=== PATIENT | male | born 1945 | race Caucasian/White ===

== ENCOUNTER 2019-05-16 13:08 | Emergency (ER) | payer SELFPAY ==
[2019-05-16 13:16] VITALS: BP 191/106; PULSE 114; RESP 20; TEMP 36.6; O2SAT 95
--- NOTE | 2019-05-16 13:24 | ED.GENADUL_ITS ---
Discharge Plan Disposition Patient Disposition: HOME Condition: Stable Discharge Details Chief Complaint: Nausea/Vomit/Diar Clinical Impression: Diarrhea Primary Care Provider: None,None ED Provider: Lety Boyle Home Meds and New Rx's Prescriptions: New ondansetron HCl [Zofran] 4 mg tablet 4 mg PO Q8H PRNQty: 7 RF: 0 Continued omeprazole 40 MG capsule,delayed release(DR/EC) 40 mg DAILY RF: 0 aspirin [Aspir-81] 81 MG tablet,delayed release (DR/EC) 81 mg DAILY RF: 0 metformin [Glucophage] 1,000 MG tablet 1,000 mg BID RF: 0 oxycodone 5 MG tablet 5 mg BID PRNRF: 0 cyclobenzaprine 10 mg Tablet 10 mg PO TID RF: 0 atorvastatin 40 mg Tablet 40 mg PO DAILY RF: 0 lisinopril-hydrochlorothiazide 20-25 mg Tablet 2 tab PO DAILY RF: 0 capsaicin 0.025 % Cream 1 applic TOPICAL BID RF: 0 levothyroxine 200 mcg Tablet 200 mcg PO DAILY RF: 0 glipizide 5 mg Tablet 5 mg PO BID RF: 0 metoprolol tartrate 25 mg Tablet 75 mg PO DAILY RF: 0 Discharge Instructions Instructions: Acute Diarrhea (ED) Additional Instructions: Follow up with primary care provider in 3-5 days. Return to ED sooner if any worsening or concerns. Increase oral fluids. Discharge Data Discharge Date/Time-TO BE ENTERED AT DEPARTURE: 05/16/19 18:16 Medical Decision Making 73-year-old male with a history of hypertension and type 2 diabetes presents with nausea and diarrhea which began this morning. He denies fever or chills, is associated with abdominal burning denies vomiting. 1521: Patient reevaluation, he states that his abdominal burning is better after medications, no further diarrhea episodes while in department. He is having urine output in the urinal. His initial labs show sodium of 129, magnesium low at 1.2 which I will replace with 2 g magnesium IV piggyback, he also has a 14,000 white count which could suggest infectious diarrhea. He has received a liter of normal saline, Zofran, 20 mg of famotidine IV, and 2 g of magnesium. I have ordered stool culture. This time plan is to discharge home with prescription for Zofran. With in structions to follow-up with PCP. HPI General Mode of arrival: wheelchair . Date/Time Provider Initiated Documentation: 05/16/19 13:13 . Limitations to Documentation: physical limitation . Information obtained by: patient . HPI Narrative: 73-year-old male with a history of hypertension and type 2 diabetes presents with nausea and diarrhea which began this morning. He denies fever or chills, is associated with abdominal burning denies vomiting. Related Data Home Medications Medication Instructions Recorded Confirmed aspirin [Aspir-81] 81 mg DAILY 09/01/13 05/16/19 metformin [Glucophage] 1,000 mg BID 09/01/13 05/16/19 omeprazole 40 mg DAILY 09/01/13 05/16/19 oxycodone 5 mg BID PRN 09/01/13 05/16/19 atorvastatin 40 mg PO DAILY 05/16/19 05/16/19 capsaicin 1 applic TOPICAL BID 05/16/19 05/16/19 cyclobenzaprine 10 mg PO TID 05/16/19 05/16/19 glipizide 5 mg PO BID 05/16/19 05/16/19 levothyroxine 200 mcg PO DAILY 05/16/19 05/16/19 lisinopril-hydrochlorothiazide 2 tab PO DAILY 05/16/19 05/16/19 metoprolol tartrate 75 mg PO DAILY 05/16/19 05/16/19 ondansetron HCl [Zofran] 4 mg PO Q8H PRN #7 tab 05/16/19 Previous Rx's Medication Instructions Recorded ondansetron HCl [Zofran] 4 mg PO Q8H PRN #7 tab 05/16/19 Allergies Allergy/AdvReac Type Severity Reaction Status Date / Time No Known Allergies Allergy Unverified 05/16/19 13:24 General Stated Complaint: Nausea/Vomit/Diar SKYLAR: 3 Review of Systems Narrative: Constitutional: Negative for weight loss, alert and oriented, appears comfortable. HEENT: Denies trauma, headaches, blurry vision, nasal discharge, sore throat, trouble swallowing. Chest: Denies chest pain, palpitations, irregular rhythm, hypertension. Respiratory: Denies Shortness of breath, cough, hemoptysis. GI: Denies vomiting, constipation. Positive diarrhea, and abdominal pain. : Denies dysuria, hematuria, flank pain, rectal bleeding. Neuro: Denies dizziness, blurry vision, weakness, syncope, headache or facial numbness. Hematologic: Denies easy bruising, intolerance to heat or cold, hair loss. [facility] Social History Smoking/Tobacco Use Status: Former Tobacco Use Alcohol Intake: former Drug use: Never Do you feel safe at home: Yes Do you feel safe in your relationship?: Yes Exam Narrative Exam Narrative: Constitutional: Alert and oriented x3. Obese Head: Normocephalic, no trauma. Eyes: Pupils PERRLA, Red reflex noted, EOM's intact. Eyelids symmetrical withour lesions, discharge, or swelling. ENT: Bilateral TM's WNL, External ear normal to inspection, no mastoid TTP, swelling, or erythema, Nasal turbinates WNL, no nasal discharge. Normal dentition, Posterior pharynx WNL, no exudate. Chest: Tachycardic, normal S1, S2, distal pulses intact. Resp: Lungs clear to auscultation bilaterally, no wheezes, rales, or rhonchi. Abdomen: Soft nontender to palpation. Hyperactive bowel sounds noted all 4 quadrants. Musculoskeletal: Patient has leg braces to bilateral lower extremities. Skin: No suspicious rashes or lesions. Capillary refill less than 2 sec. Neurologic: Cranial nerves II-XII intact. Alert and oriented x 3. DTR's intact. Hematologic/Lymphatic: No ecchymosis, no lymphadenopathy. Course Vital Signs Vital signs: Vital Signs Temperature 36.6 C 05/16/19 13:16 Pulse 114 H 05/16/19 13:16 Respiratory Rate 05/16/19 13:16 Blood Pressure 191/106 H 05/16/19 13:16 Pulse Oximetry 95 05/16/19 13:16 Temperature 36.6 C 05/16/19 13:16 Temperature Source Oral 05/16/19 13:16 Pulse 114 H 05/16/19 13:16 Respiratory Rate 05/16/19 13:16 Respiratory Effort Non-Labored 05/16/19 13:23 Blood Pressure 191/106 H 05/16/19 13:16 Blood Pressure Position Supine 05/16/19 13:16 Pulse Oximetry 95 05/16/19 13:16 Oxygen Delivery Method Room Air 05/16/19 13:16 Oxygen Flow Rate 0 05/16/19 13:16 Pain Level 8 05/16/19 13:16
[2019-05-16] MEDS: Normal Saline 1,000 ML 1000 ML IV (14:28)
[2019-05-16] MEDS: Ondansetron 4 MG/2 ML VIAL IVP (14:29)
[2019-05-16] MEDS: Normal Saline Flush 10 ML SYR IVP (14:30)
[2019-05-16] MEDS: FAMOTIDINE 20 MG/50 ML BAG 200 MG IVPB (14:36)
[2019-05-16 14:37] LABS: Abs Immature Grans 0.08 k/cumm (0.0-0.09); Absolute Lymphocyte Count 1.79 k/cumm (1.2-3.4); Absolute Monocyte Count 1.51 k/cumm (0.11-0.7); Basophils % 0.1; HCT 32.6 % (40.0-50.0); HGB 11.4 g/dL (13.5-17.5); Immature Grans % 0.5 %; Lymphocytes % 12.1; Mean Corpuscular Hemoglobin 31.2 pg (27.0-33.0); Mean Corpuscular Volume 89.3 fL (80-95); Mean Platelet Volume 9.6 fL (8.0-11.0); Monocytes % 10.2; Neutrophils % 77.1; Platelet Count 325 x1000/uL (130-400); RBC 3.65 m/cumm (4.50-6.00); RBC Distribution Width 12.7 % (11.8-14.1); White Blood Cell Count 14.77 k/cumm (4.4-10.8)
[2019-05-16 14:38] LABS: Absolute Basophil Count 0.01 k/cumm (0.0-0.2); Absolute Neutrophil Count 11.39 k/cumm (1.2-6.7)
[2019-05-16 14:56] LABS: ALT 38 U/L (16-63); AST 28 U/L (15-37); Alkaline Phosphatase 30 U/L (46-116); Anion Gap 11.1 mmol/L (3-11); BUN 17 mg/dL (7-18); Bilirubin, Total 0.5 mg/dL (0.2-1.0); CO2 25.9 mmol/L (21.0-32.0); Calcium 9.1 mg/dL (8.5-10.1); Chloride 92 mmol/L (98-107); Estimated GFR 59.68 (mL/min/1.73m2); Glucose 146 mg/dL (74-106); Magnesium 1.2 mg/dL (1.8-2.4); Potassium 3.6 mmol/L (3.5-5.1); Sodium 129 mmol/L (136-145); Total Protein 7.6 g/dL (6.4-8.2)
[2019-05-16 15:05] LABS: Diff Comment Agrees w/ Instrument
[2019-05-16] MEDS: MAGNESIUM SULFATE 2 GM/50 ML BAG IVPB (15:40)
[2019-05-16 15:57] LABS: Bilirubin Negative (Negative); Blood Negative (Negative); Clarity Clear (Clear); Glucose Negative (Negative); Ketones Negative (Negative); Leukocyte Esterase Negative (Negative); Nitrite Negative (Negative); Specific Gravity 1.015 (1.005-1.025); Urobilinogen 0.2 EU/dL (Up TO 0.2); pH 6.5 (5-8)
[2019-05-16 17:00] VITALS: BP 154/85; PULSE 104; O2SAT 96
== END 2019-05-16 18:16 | disposition home or self-care (01) ==
PROVIDERS: Emergency Provider Registered Nurse Emergency
DX: R19.7 Diarrhea, unspecified (principal); E83.42 Hypomagnesemia; I10 Essential (primary) hypertension; E11.9 Type 2 diabetes mellitus without complications
CPT/HCPCS: 36415; 80053; 96361; 96365; 96366; 96367; 96375; 99284; 81003; 83735; 85025; J2405

== ENCOUNTER 2019-06-10 10:27 | Emergency (ER) | payer OTHER, SELFPAY ==
[2019-06-10 10:45] VITALS: BP 182/74; PULSE 90; TEMP 36.8; O2SAT 94
--- NOTE | 2019-06-10 11:15 | DI.CT_ITS ---
EXAM: CT ABDOMEN PELVIS W CLINICAL HISTORY: abdominal pain, bloating, unable to eat x 3 days. TECHNIQUE: Imaging Protocol: Axial computed tomography images with coronal and sagittal reformatted images were created and reviewed CONTRAST MATERIAL: Intravenous: Omnipaque 350 Contrast volume:125 mL Oral: No COMPARISON: No exams were available for comparison FINDINGS: ABDOMEN: Lung Bases: Normal where visualized. Liver: Normal density. No measurable mass. Portal, Superior Mesenteric, and Splenic Veins: Unremarkable. Gallbladder and Biliary Tract: No radiodense calculus or dilation. Pancreas: Normal density, no abnormal calcifications or inflammatory process. Spleen: Normal. Adrenals: No masses seen. Kidneys: Normal size, contour and axis. No radiodense stones or obstructive uropathy. No masses seen. Abdominal Aorta: Abdominal portion non-dilated. Atherosclerosis. Bowel: No obstruction or bowel wall thickening. Appendix is unremarkable. Colonic diverticulosis but no evidence of acute diverticulitis. Peritoneal Cavity: No ascites, collection or mesenteric inflammatory response. Lymph Nodes: Within normal limits. Bones: Degenerative changes. Soft Tissues: Portions of the anterior abdominal wall were not visualized due to patient body habitus and positioning. PELVIS: Bladder: Symmetric distention, no gross wall thickening. Reproductive Organs: Unremarkable as visualized. Lymph Nodes: Within normal limits. Bones: Degenerative changes. IMPRESSION: No acute abdominal or pelvic process. RADIATION DOSE DELIVERED: Total DLP DATA REPOSITORY: All CT scans at this facility are submitted to the National Radiology Data Registry (NRDR) Dose Index Registry (DIR) with the [employer] ([employer]). RADIATION OPTIMIZATION: All CT scans at this facility use at least one of these dose optimization te chniques: automated exposure control; mA and/or kV adjustment per patient size (includes targeted exa ms where dose is matched to clinical indication); or iterative reconstruction.
--- NOTE | 2019-06-10 11:17 | ED.GENADUL_ITS ---
Discharge Plan Disposition Patient Disposition: HOME Condition: Stable Discharge Details Chief Complaint: Abd Prob Clinical Impression: Abdominal pain, Chronic hyponatremia Primary Care Provider: Brianne Montano ED Provider: Loraine Hare Home Meds and New Rx's Prescriptions: New dicyclomine 20 mg tablet 20 mg PO QID Qty: 10 RF: 0 Continued omeprazole 40 MG capsule,delayed release(DR/EC) 40 mg DAILY RF: 0 aspirin [Aspir-81] 81 MG tablet,delayed release (DR/EC) 81 mg DAILY RF: 0 metformin [Glucophage] 1,000 MG tablet 1,000 mg BID RF: 0 oxycodone 5 MG tablet 5 mg BID PRNRF: 0 cyclobenzaprine 10 mg Tablet 10 mg PO TID RF: 0 atorvastatin 40 mg Tablet 40 mg PO DAILY RF: 0 lisinopril-hydrochlorothiazide 20-25 mg Tablet 2 tab PO DAILY RF: 0 capsaicin 0.025 % Cream 1 applic TOPICAL BID RF: 0 levothyroxine 200 mcg Tablet 200 mcg PO DAILY RF: 0 glipizide 5 mg Tablet 5 mg PO BID RF: 0 metoprolol tartrate 25 mg Tablet 75 mg PO DAILY RF: 0 ondansetron HCl [Zofran] 4 mg tablet 4 mg PO Q8H PRNQty: 7 RF: 0 Discharge Instructions Instructions: Hyponatremia (ED), Abdominal Pain (ED) Additional Instructions: Drink plenty of fluids. Use medication as prescribed. Follow-up with your lab abnormalities with [facility] specifically in your low sodiums and elevated WBC's Your CT scan today did reveal incidental findings of hiatal hernia as well as diverticulosis without signs of infection. Nothing to indicate emergency at this time. Continue daily omeprazole Rest activities as tolerated. Call [place] for recheck. Return for any worsening, concerns or alarming symptoms sooner if needed Discharge Data Discharge Date/Time-TO BE ENTERED AT DEPARTURE: 06/10/19 13:45 Medical Decision Making Is a 73-year-old patient presenting with complaints of 3 days of abdominal discomfort described diffusely. Patient reports he has had no appetite for the last 3 days and has been unable to eat due to abdominal discomfort. Patient reports he was seen approximately 3 weeks ago for similar burning type sensation in his abdomen. Patient reports he was prescribed medication which he lost. Patient is seeking this medication at this time which he thinks to be eating in his discomfort. Patient denies nausea or vomiting. Denies changes in his bowels. He does report abdominal bloating and a sensation of feeling gassy. Patient reports occasional itching normal flatus. Patient denies any diarrhea, constipation. Patient does report he moved his bowels x2 today which were normal bowel movements. Denies dark or blood in his bowel movements. Patient reports his inability to eat is quite atypical. Patient denies fever or chills. Patient appears nontoxic at this time in no apparent distress. On exam patient has clear breath sounds with no increase in respiratory effort. Patient does have notable abdominal tenderness with palpation he describes 9 out of 10 pain with palpation specifically of his lower abdomen on the right. Patient is also complaining of left-sided abdominal pain. No obvious peritoneal signs, rebound or guarding. Patient reports feeling distended at this time. Bowel sounds are present in all 4 quadrants. After discussion with the patient will plan to obtain imaging of his abdomen at this time in addition to repeating labs. Patient's previous visit he was somewhat hypo-natremia. Patient declines medication use at this time. Patient's labs reveal a persistent leukocytosis which is been previously noted on his labs. Patient does have some decrease in his leukocytosis compared to previous visit. Patient does have a sodium of 125 noted today mild elevation of his glucose. Patient is notable diabetic. Lipase is normal patient did receive 1 L of IV fluid which will be completed and labs will be repeated. Of note patient's previous labs have noted hyponatremia which is attributed to his daily medications on previous medical charts. Patient denies any gait instability, confusion nausea or headache. I feel his hyponatremia is likely chronic. Patient's urinalysis unremarkable for identified infection today. Patient CT scan reveals a small hiatal hernia and diverticulosis without evidence of diverticulitis. No acute identifiable cause of patient's symptoms. Repeat of patient's BMP reveals improvement in his sodium to 128. We will plan to discharge this patient home. We did discuss his lab results. Recommended follow-up with his [facility] doctor. Patient feels comfortable with discharge home at this time. Will provide prescription for Bentyl for symptomatic relief of patient's abdominal cramping. Patient agrees this plan of care. Recommended follow-up with PCP if not improving in the next 2 to 3 days. Improved blood pressure during visit however notable discharge blood pressure 177/90. This was discussed with the patient. He has no concern of hypertensive emergency at this time. Recommended compliance with his daily medications. Patient reports his understanding. Will recheck with PCP at the [place]. The patient was stable and requested discharge. Prior to discharge, my usual and customary return precautions were reviewed with the patient - this included follow-up instructions and reasons to return to the Emergency Department if conditions worsens, does not improve as expected, or other new concerns arise. HPI General Date/Time Provider Initiated Documentation: 06/10/19 10:49 . HPI Narrative: Is a 73-year-old patient presenting for complaints of abdominal pain. Patient reports onset of abdominal pain and discomfort for the last 3 days. Patient reports unable to eat for the last 3 days, decreased appetite. Patient does report mild abdominal bloating. Patient reports gas type feeling and burning sensation in his abdomen. Patient denies any esophageal or chest symptoms. Patient denies epigastric discomfort. Patient does report moving his bowels normally. Denies associated diarrhea. Patient reports he was seen a few weeks ago for similar complaints however at that time he was able to eat and drink without difficulty. Patient reports he never filled the prescribed prescription and was returning for concern of having prescription re written. Patient denies fever. Patient is urinating without difficulty, urgency frequency dysuria or hematuria. Patient reports abdominal discomfort is diffuse. Denies any back complaints. Denies chest pain but if it difficulty breathing or shortness of breath or wheezing. No new cough. No headache or dizziness. No other concerns or complaints at this time. Related Data Home Medications Medication Instructions Recorded Confirmed aspirin [Aspir-81] 81 mg DAILY 09/01/13 06/10/19 metformin [Glucophage] 1,000 mg BID 09/01/13 06/10/19 omeprazole 40 mg DAILY 09/01/13 06/10/19 oxycodone 5 mg BID PRN 09/01/13 06/10/19 atorvastatin 40 mg PO DAILY 05/16/19 06/10/19 capsaicin 1 applic TOPICAL BID 05/16/19 06/10/19 cyclobenzaprine 10 mg PO TID 05/16/19 06/10/19 glipizide 5 mg PO BID 05/16/19 06/10/19 levothyroxine 200 mcg PO DAILY 05/16/19 06/10/19 lisinopril-hydrochlorothiazide 2 tab PO DAILY 05/16/19 06/10/19 metoprolol tartrate 75 mg PO DAILY 05/16/19 06/10/19 ondansetron HCl [Zofran] 4 mg PO Q8H PRN #7 tab 05/16/19 06/10/19 dicyclomine 20 mg PO QID #10 tab 06/10/19 Previous Rx's Medication Instructions Recorded ondansetron HCl [Zofran] 4 mg PO Q8H PRN #7 tab 05/16/19 dicyclomine 20 mg PO QID #10 tab 06/10/19 Allergies Allergy/AdvReac Type Severity Reaction Status Date / Time No Known Allergies Allergy Unverified 06/10/19 11:06 General Stated Complaint: Abd Prob SKYLAR: 4 Review of Systems All systems reviewed & are unremarkable except as noted in HPI and below Constitutional Constitutional: Denies chills, Denies fever(s), Denies headache(s) and Denies malaise ENT Ears, Nose, Mouth, and Throat: Denies headache(s) Cardiovascular Cardiovascular: Denies chest pain, Denies rapid heart rate and Denies dyspnea Respiratory Respiratory: Denies cough and Denies dyspnea Gastrointestinal Gastrointestinal: Reports abdominal pain, Denies melena, Reports bloating, Denies hematochezia, Denies change in bowel habits, Denies heartburn, Denies diarrhea, Denies nausea and Denies vomiting Genitourinary Genitourinary: Denies difficulty urinating, Denies urinary frequency and Denies urinary urgency Neurologic Neurologic: Denies headache(s) [facility] Social History Smoking/Tobacco Use Status: Former Tobacco Use Alcohol Intake: former Drug use: Never Substance use type: does not use Do you feel safe at home: Yes Do you feel safe in your relationship?: Yes Exam Narrative Exam Narrative: CONST: Patient in no acute distress. Well hydrated. Alert and oriented. HENMT: Head nomocephalic, normal to inspection. Atraumatic. Hearing grossly normal. EYES: General normal appearance. Alignment normal. Eyelids normal. Conjunctiva normal. NECK: Normal visual inspection. FROM. Trachea midline. No Midline tenderness. Mild dry mucous membranes CHEST: Normal insepection of the chest. RESP: Normal respiratory effort. Speaking full sentences. No cough. No audible wheezing. No retractions. Breath sounds clear, full and equal bilaterally. No wheezing, rhonchi or rales CARDIO: No JVD. No murmur. Regular rate and rhythm Abdomen: Bowel sounds present all 4 quadrants. Abdomen is soft. Moderate tenderness in the right lower quadrant, left upper and left lower quadrants. Patient reports 9 out of 10 pain with palpation of the lower abdomen. No obvious peritoneal signs, rebound or guarding. MUSCULOSKELETAL: Normal Gait. FROM of all extremities. Back: No CVA tenderness noted bilaterally. Lower leg braces noted bilaterally SKIN: Normal. Dry. No rashes. NEURO: Alert and awake. Speech clear. PSYCH: Normal affect. Cooperative. Course Vital Signs Vital signs: Vital Signs Temperature 36.8 C 06/10/19 10:45 Pulse 90 06/10/19 10:45 Blood Pressure 182/74 H 06/10/19 10:45 Pulse Oximetry 94 L 06/10/19 10:45 Temperature 36.8 C 06/10/19 10:45 Temperature Source Temporal Artery Scan 06/10/19 10:45 Pulse 90 06/10/19 10:45 Blood Pressure 182/74 H 06/10/19 10:45 Blood Pressure Position Sitting 06/10/19 10:45 Pulse Oximetry 94 L 06/10/19 10:45 Oxygen Delivery Method Room Air 06/10/19 10:45 Oxygen Flow Rate 0 06/10/19 10:45
[2019-06-10 11:33] LABS: Bilirubin Negative (Negative); Blood Negative (Negative); Clarity Clear (Clear); Glucose Negative (Negative); Ketones Negative (Negative); Leukocyte Esterase Negative (Negative); Nitrite Negative (Negative); Specific Gravity >= 1.030 (1.005-1.025); Urobilinogen 0.2 EU/dL (Up TO 0.2)
[2019-06-10 11:47] LABS: Epithelial Cells Rare HPF (Negative); WBC 0-2 HPF (0-5)
[2019-06-10 11:48] LABS: Bacteria Few HPF (Negative); C & S Indicated? No; Casts 10-20 Hyaline LPF (Negative); Crystals Negative HPF (Negative); Mucus Heavy (Negative); Other Cells Few Renal (Negative)
[2019-06-10] MEDS: Omnipaque 350 MG/ML 100 ML BTL IJ (11:52)
[2019-06-10 11:54] LABS: Abs Immature Grans 0.08 k/cumm (0.0-0.09); Absolute Basophil Count 0.01 k/cumm (0.0-0.2); Absolute Lymphocyte Count 1.82 k/cumm (1.2-3.4); Absolute Monocyte Count 1.53 k/cumm (0.11-0.7); Basophils % 0.1; HCT 33.6 % (40.0-50.0); Immature Grans % 0.6 %; Lymphocytes % 13.9; Mean Corp. HGB Concentration 35.7 g/dL (32.0-36.0); Mean Corpuscular Hemoglobin 31.7 pg (27.0-33.0); Mean Corpuscular Volume 88.7 fL (80-95); Mean Platelet Volume 9.2 fL (8.0-11.0); Monocytes % 11.7; Neutrophils % 73.7; Platelet Count 370 x1000/uL (130-400); RBC 3.79 m/cumm (4.50-6.00); RBC Distribution Width 12.9 % (11.8-14.1)
[2019-06-10 11:55] LABS: Absolute Neutrophil Count 9.65 k/cumm (1.2-6.7)
[2019-06-10 12:05] LABS: Diff Comment Agrees w/ Instrument
[2019-06-10 12:06] LABS: RBC Morphology Normal
--- NOTE | 2019-06-10 12:09 | DI.VRAD_ITS ---
PROCEDURE INFORMATION: Exam: CT Abdomen And Pelvis With Contrast Exam date and time: 06/10/2019 11:20 AM Age: 73 years old Clinical indication: Abdominal pain; Patient HX: Abd pain, bloating, unable to eat 3x days TECHNIQUE: Imaging protocol: Computed tomography of the abdomen and pelvis with intravenous contrast. COMPARISON: No relevant prior studies available. FINDINGS: Small hiatal hernia. Diverticulosis without evidence of diverticulitis. Normal appearing solid organs. No intestinal obstruction. No obstructive uropathy. No free fluid. No free air. No inflammatory changes. IMPRESSION: No specific etiology identified for the patient's symptoms. Dictated and Authenticated by: Danny Griffin MD. Ordering:ASHLEY Baron MD
[2019-06-10 12:12] LABS: ALT 39 U/L (16-63); AST 24 U/L (15-37); Albumin 4.2 g/dL (3.4-5.0); Alkaline Phosphatase 26 U/L (46-116); Anion Gap 6.5 mmol/L (3-11); BUN 18 mg/dL (7-18); Bilirubin, Total 0.5 mg/dL (0.2-1.0); CO2 28.5 mmol/L (21.0-32.0); CREATININE 1.27 mg/dL (0.70-1.30); Calcium 10.4 mg/dL (8.5-10.1); Chloride 90 mmol/L (98-107); Estimated GFR 55.91 (mL/min/1.73m2); Glucose 175 mg/dL (74-106); Lipase 53 U/L (73-393); Potassium 3.6 mmol/L (3.5-5.1); Sodium 125 mmol/L (136-145)
[2019-06-10] MEDS: Normal Saline 1,000 ML 1000 ML IV (12:14)
[2019-06-10] MEDS: Normal Saline Flush 10 ML SYR IVP (12:14)
[2019-06-10 13:25] LABS: Anion Gap 7.7 mmol/L (3-11); BUN 17 mg/dL (7-18); CO2 28.3 mmol/L (21.0-32.0); CREATININE 1.21 mg/dL (0.70-1.30); Calcium 9.8 mg/dL (8.5-10.1); Chloride 92 mmol/L (98-107); Estimated GFR 59.12 (mL/min/1.73m2); Glucose 139 mg/dL (74-106); Potassium 3.8 mmol/L (3.5-5.1); Sodium 128 mmol/L (136-145)
[2019-06-10 13:43] VITALS: BP 177/90; PULSE 94; RESP 18; TEMP 36.9; O2SAT 96
== END 2019-06-10 13:45 | disposition home or self-care (01) ==
PROVIDERS: Emergency Provider Physician Assistant; PCP Nurse Practitioner Adult Health
DX: R10.84 Generalized abdominal pain (principal); E87.1 Hypo-osmolality and hyponatremia; K57.30 Diverticulosis of large intestine without perforation or abscess without bleeding; K44.9 Diaphragmatic hernia without obstruction or gangrene; E11.9 Type 2 diabetes mellitus without complications; Z79.84 Long term (current) use of oral hypoglycemic drugs
CPT/HCPCS: 80048; 80053; 83690; 96360; 99285; 74177; 81003; 81015; 85025; 99284; J3490

== ENCOUNTER 2019-06-12 11:37 | Inpatient (IN) | payer MEDICARE, OTHER, SELFPAY ==
[2019-06-12] VITALS (21 sets, daily range): BP systolic 132–157; BP diastolic 56–75; PULSE 66–110; RESP 14–26; TEMP 36.6–36.9; O2SAT 95–98
--- NOTE | 2019-06-12 12:02 | W.ED.GENAD ---
Discharge Plan Discharge Details Chief Complaint: Abd Prob Admit Date/Time: 06/12/19 13:14 Admit Provider: Joi Parson Attending Provider: Joi Parson Primary Care Provider: Brianne Montano ED Provider: Naye Sin Medical Decision Making Naveed Arguelles is a 73 y/o man with h/o diabetes, hypothyroidism, HTN who presented to the emergency department with abdominal pain after meals that began one week ago after running out of omeprazole, unchanged since onset, in setting of being seen here for same 2 days ago with neg CT a/p. No current pain. Exam shows no abd TTP. Neurologic exam grossly non-focal. Exam/hx not c/w acute life threatening intra-abdominal pathology. Concern for likely gastritis/PUD, possible metabolic/lyte derangement given prior hyponatremia 06/09. Plan for omeprazole, screening labs. Labs show critical hyponatremia at 120. Hypercalcemia, leukocytosis at 15. Unclear etiology of hyponatremia, Pt does appear mildly dehydrated. Plan for 500cc NS. Discussed Pt presentation and results with Dr. Parson hospitalist for admission. Will send urine lytes for hospitalist. Clinical Impression: hyponatremia Disposition: [facility] in Medical Records Medical records reviewed: Yes I reviewed the patient's medical records. Lab Data Lab results reviewed: Yes I reviewed the patient's lab results. Labs: Laboratory Tests Range/Units 06/12/19 06/12/19 06/12/19 12:25 12:25 12:25 WBC (4.4-10.8) k/cumm 15.92 H RBC (4.50-6.00) m/cumm 3.72 L Hgb (13.5-17.5) g/dL 11.8 L Hct (40.0-50.0) % 32.3 L MCV (80-95) fL 86.8 MCH (27.0-33.0) pg 31.7 MCHC (32.0-36.0) g/dL 36.5 H RDW (11.8-14.1) % 12.5 Plt Count (130-400) x1000/uL 379 MPV (8.0-11.0) fL 9.2 Immature Gran % % 0.5 Neutrophils % 78.8 Lymphocytes % 11.7 Monocytes % 8.9 Eosinophils % 0.0 Basophils % 0.1 Absolute Neutrophils (1.2-6.7) k/cumm 12.54 H Absolute Lymphocytes (1.2-3.4) k/cumm 1.86 Absolute Monocytes (0.11-0.7) k/cumm 1.42 H Absolute Eosinophils (0.0-0.7) k/cumm 0.00 Absolute Basophils (0.0-0.2) k/cumm 0.02 Sodium (136-145) mmol/L 120 L* Potassium (3.5-5.1) mmol/L 3.4 L Chloride (98-107) mmol/L 84 L Carbon Dioxide (21.0-32.0) mmol/L 25.5 Anion Gap (3-11) mmol/L 10.5 BUN (7-18) mg/dL 12 Creatinine (0.70-1.30) mg/dL 1.12 Estimated GFR/1.73 m2 (mL/min/1.73m2) >= 60.00 Glucose (74-106) mg/dL 116 H Calcium (8.5-10.1) mg/dL 10.5 H Total Bilirubin (0.2-1.0) mg/dL 0.6 AST (15-37) U/L 35 ALT (16-63) U/L 39 Alkaline Phosphatase (46-116) U/L 25 L Total Protein (6.4-8.2) g/dL 7.6 Albumin (3.4-5.0) g/dL 4.0 Lipase (73-393) U/L 43 TSH (0.36-3.74) uIU/mL 2.10 Urine Color (Yellow) Urine Clarity (Clear) Urine pH (5-8) Ur Specific [place] (1.005-1.025) Urine Protein (Negative) mg/dL Urine Ketones (Negative) mg/dL Urine Blood (Negative) Urine Nitrite (Negative) Urine Bilirubin (Negative) Urine Urobilinogen (Up TO 0.2) EU/dL Ur Leukocyte Esterase (Negative) Urine Glucose (Negative) mg/dL Range/Units 06/12/19 13:15 WBC (4.4-10.8) k/cumm RBC (4.50-6.00) m/cumm Hgb (13.5-17.5) g/dL Hct (40.0-50.0) % MCV (80-95) fL MCH (27.0-33.0) pg MCHC (32.0-36.0) g/dL RDW (11.8-14.1) % Plt Count (130-400) x1000/uL MPV (8.0-11.0) fL Immature Gran % % Neutrophils % Lymphocytes % Monocytes % Eosinophils % Basophils % Absolute Neutrophils (1.2-6.7) k/cumm Absolute Lymphocytes (1.2-3.4) k/cumm Absolute Monocytes (0.11-0.7) k/cumm Absolute Eosinophils (0.0-0.7) k/cumm Absolute Basophils (0.0-0.2) k/cumm Sodium (136-145) mmol/L Potassium (3.5-5.1) mmol/L Chloride (98-107) mmol/L Carbon Dioxide (21.0-32.0) mmol/L Anion Gap (3-11) mmol/L BUN (7-18) mg/dL Creatinine (0.70-1.30) mg/dL Estimated GFR/1.73 m2 (mL/min/1.73m2) Glucose (74-106) mg/dL Calcium (8.5-10.1) mg/dL Total Bilirubin (0.2-1.0) mg/dL AST (15-37) U/L ALT (16-63) U/L Alkaline Phosphatase (46-116) U/L Total Protein (6.4-8.2) g/dL Albumin (3.4-5.0) g/dL Lipase (73-393) U/L TSH (0.36-3.74) uIU/mL Urine Color (Yellow) Yellow Urine Clarity (Clear) Clear Urine pH (5-8) 7.0 Ur Specific [place] (1.005-1.025) 1.020 Urine Protein (Negative) mg/dL Negative Urine Ketones (Negative) mg/dL Negative Urine Blood (Negative) Negative Urine Nitrite (Negative) Negative Urine Bilirubin (Negative) Negative Urine Urobilinogen (Up TO 0.2) EU/dL 0.2 Ur Leukocyte Esterase (Negative) Negative Urine Glucose (Negative) mg/dL Negative HPI General Mode of arrival: ambulatory. Date/Time Provider Initiated Documentation: 06/12/19 11:39. Limitations to Documentation: no limitations. Information obtained by: patient, RN notes reviewed and old records reviewed. HPI Narrative: Naveed Arguelles is a 73 y/o man with history of hypothyroidism, hypertension, diabetes presenting to the emergency department with abdominal pain. Patient reports that he ran out of his omeprazole 1 week ago. Patient reports that since running out of his omeprazole, he has had pain across the middle of his abdomen that occurs after eating. Patient reports that pain resolves within an hour or 2 of eating. Patient reports that he is currently pain-free. Per patient and record review, patient was seen here for this abdominal pain 06/09. Patient underwent CT at that time showing no acute process. Patient has chronic hyponatremia, and was found to have sodium 125, sodium was repeated after fluids and patient was discharged home with sodium 128. Patient reports that his abdominal pain that he is presenting to the emergency with today is the same pain that he presented with 06/09. Patient reports that his pain has been unchanged since onset approximately 1 week ago after running out of omeprazole. No worsening, no change in location over the past week. Patient denies any other pain, fevers, shortness of breath, cough, dysuria, numbness, weakness, rash, vomiting, diarrhea, constipation. Related Data Home Medications Medication Instructions Recorded Confirmed aspirin [Aspir-81] 81 mg DAILY 09/01/13 06/12/19 metformin [Glucophage] 1,000 mg BID 09/01/13 06/12/19 omeprazole 40 mg DAILY 09/01/13 06/12/19 oxycodone 5 mg BID PRN 09/01/13 06/12/19 atorvastatin 40 mg PO DAILY 05/16/19 06/12/19 capsaicin 1 applic TOPICAL BID 05/16/19 06/12/19 cyclobenzaprine 10 mg PO TID 05/16/19 06/12/19 glipizide 5 mg PO BID 05/16/19 06/12/19 levothyroxine 200 mcg PO DAILY 05/16/19 06/12/19 lisinopril-hydrochlorothiazide 2 tab PO DAILY 05/16/19 06/12/19 metoprolol tartrate 75 mg PO DAILY 05/16/19 06/12/19 ondansetron HCl [Zofran] 4 mg PO Q8H PRN #7 tab 05/16/19 06/12/19 dicyclomine 20 mg PO QID #10 tab 06/10/19 06/12/19 Previous Rx's Medication Instructions Recorded ondansetron HCl [Zofran] 4 mg PO Q8H PRN #7 tab 05/16/19 dicyclomine 20 mg PO QID #10 tab 06/10/19 Allergies Allergy/AdvReac Type Severity Reaction Status Date / Time No Known Allergies Allergy Unverified 06/10/19 11:06 General Stated Complaint: Abd Prob SKYLAR: 3 Review of Systems Narrative: Constitutional: denies fevers Eyes: denies eye pain ENT: denies ear pain, dental pain, sore throat Cardiovascular: denies chest pain, edema Respiratory: denies SOB, cough GI: denies vomiting, diarrhea, reports abdominal pain : denies flank pain MSK: denies back pain, neck pain, acute arthralgias, myalgias, reports chronic b/l knee pain unchanged Skin: denies rash Neuro: denies headaches, numbness, weakness PFSH Social History Smoking/Tobacco Use Status: Former Tobacco Use Alcohol Intake: former Drug use: Never Substance use type: does not use Do you feel safe at home: Yes Do you feel safe in your relationship?: Yes Exam Narrative Exam Narrative: Constitutional: well and [id number], pleasant, conversing normally HENT: head atraumatic/normocephalic/normal inspection, mucous membranes somewhat dry Eyes: conjunctiva normal, sclera normal, pupils 3mm b/l Neck: no stridor, normal ROM, trachea midline Resp: normal work of breathing, no respiratory distress Cardio: normal rate, normal rhythm GI: abdomen soft, non-tender, non-distended Skin: warm, dry, normal color, no rash Neuro: alert, not altered, grossly non-focal, normal tone Ext: moving all extremities, leg braces in place Psych: normal mood, normal affect, normal behavior Course Vital Signs Vital signs: Vital Signs Temperature 36.9 C 06/12/19 11:46 Pulse 77 06/12/19 11:46 Respiratory Rate 18 06/12/19 11:46 Blood Pressure 147/56 H 06/12/19 11:46 Pulse Oximetry 95 06/12/19 11:46 Temperature 36.9 C 06/12/19 11:46 Temperature Source Temporal Artery Scan 06/12/19 11:46 Pulse 77 06/12/19 11:46 Respiratory Rate 18 06/12/19 11:46 Blood Pressure 147/56 H 06/12/19 11:46 Blood Pressure Position Sitting 06/12/19 11:46 Pulse Oximetry 95 06/12/19 11:46 Oxygen Delivery Method Room Air 06/12/19 11:46 Oxygen Flow Rate 0 06/12/19 11:46 Pain Level 8 06/12/19 11:46
[2019-06-12 12:32] LABS: Abs Immature Grans 0.08 k/cumm (0.0-0.09); Absolute Monocyte Count 1.42 k/cumm (0.11-0.7); Absolute Neutrophil Count 12.54 k/cumm (1.2-6.7); Basophils % 0.1; HCT 32.3 % (40.0-50.0); HGB 11.8 g/dL (13.5-17.5); Immature Grans % 0.5 %; Lymphocytes % 11.7; Mean Corp. HGB Concentration 36.5 g/dL (32.0-36.0); Mean Corpuscular Hemoglobin 31.7 pg (27.0-33.0); Mean Corpuscular Volume 86.8 fL (80-95); Mean Platelet Volume 9.2 fL (8.0-11.0); Monocytes % 8.9; Neutrophils % 78.8; Platelet Count 379 x1000/uL (130-400); RBC 3.72 m/cumm (4.50-6.00); RBC Distribution Width 12.5 % (11.8-14.1); White Blood Cell Count 15.92 k/cumm (4.4-10.8)
[2019-06-12 12:35] LABS: Absolute Basophil Count 0.02 k/cumm (0.0-0.2); Absolute Lymphocyte Count 1.86 k/cumm (1.2-3.4)
[2019-06-12] MEDS: Omeprazole 20 MG CAPCR 40 MG PO (12:47)
[2019-06-12 12:48] LABS: ALT 39 U/L (16-63); AST 35 U/L (15-37); Alkaline Phosphatase 25 U/L (46-116); Anion Gap 10.5 mmol/L (3-11); BUN 12 mg/dL (7-18); Bilirubin, Total 0.6 mg/dL (0.2-1.0); CO2 25.5 mmol/L (21.0-32.0); CREATININE 1.12 mg/dL (0.70-1.30); Calcium 10.5 mg/dL (8.5-10.1); Chloride 84 mmol/L (98-107); Glucose 116 mg/dL (74-106); Lipase 43 U/L (73-393); Potassium 3.4 mmol/L (3.5-5.1); Total Protein 7.6 g/dL (6.4-8.2)
[2019-06-12 12:51] LABS: Sodium 120 mmol/L (136-145)
[2019-06-12] MEDS: Normal Saline 250 ML 500 ML IV (13:21)
[2019-06-12 13:25] LABS: Bilirubin Negative (Negative); Blood Negative (Negative); Clarity Clear (Clear); Glucose Negative (Negative); Ketones Negative (Negative); Leukocyte Esterase Negative (Negative); Nitrite Negative (Negative); Urobilinogen 0.2 EU/dL (Up TO 0.2)
[2019-06-12 13:32] LABS: Creatinine,Urine 33.37 mg/dL; POTASSIUM,URINE RANDOM 32 mmol/L
[2019-06-12 13:39] LABS: Lactate 1.1 mmol/L (0.6-1.4)
[2019-06-12 13:52] LABS: Sodium, Urine 45 mmol/L
[2019-06-12] MEDS: Lidocaine 2% Jelly 6 ML SYR (16:15)
--- NOTE | 2019-06-12 16:19 | W.PM.HP.N ---
Date of service: 06/12/19 Time of Service: 16:19 Assessment and Plan Assessment and plan (1) Acute hyponatremia: Status: Acute Assessment and plan: on chronic. I suspect this could be due to his use of HCTZ/lisinopril, not eating. SIADH less likely as he had no nausea, but not impossible - would benefit from chest imaging on transfer to [place], if accepted. Does have a h/o smoking. For now, treat with gentle IVF, check BMP Q4-6 hrs. Await transfer to the [place]. (2) Abdominal pain: Status: Acute Assessment and plan: suspicious for gastric ulcer, gastritis, gastroparesis. Would benefit from an EGD and/or gastric emptying study. (3) Leucocytosis: Status: Acute Assessment and plan: Appears to be chronic. I am not sure what workup of this was already done at the [place] - therefore, will not aggressively pursue if transferred. If stays here, at a minimum would benefit from CXR and a UA. (4) Hypokalemia: Status: Acute Assessment and plan: Replete (5) DVT prophylaxis: Status: Acute Assessment and plan: TEDs/SCDs. (6) Discharge planning issues: Status: Acute Assessment and plan: Full code. Patient requests transfer to the [place], which we are attempting to arrange. Patient is stable for transfer there today. Total Critical Care Time 60 minutes. History of Present Illness History of Present Illness Chief Complaint: abdominal pain Narrative: Mr Arguelles is a 73 year old male with PMHx of NIDDM2, HTN, hyperlipidemia, chronic hyponatremia, hypothyroidism, GERD, who was seen at [facility] ED on 06/10/2019 with epigastric-midabdominal pain and discharged home after having negative imaging, who returned today with recurrent abdominal pain, worse after he eats, requesting omeprazole. The patient was found to have a sodium of 120. He states he has not eaten in 2 days, but continued to drink water and take his medications. He states that he had not had any diarrhea/constipation, nausea/vomiting, blood in stool. He last had a BM 2 days ago - it was brown. There is no abdominal pain at the time of the interview. The patient is a poor history provider, but states he has never had any surgeries, which includes EGD/Colonoscopy. He denies having history of peptic ulcers and does not know what gastroparesis is. He denies using NSAIDs for his arthritis, stating he only takes oxycodone. Denies fevers, dizziness, chest pain, shortness of breath, cough, contact with any known COVID + patients. In the ED, he was initiated on gentle IVF. His next sodium level is pending. [facility] and [facility] now [facility]. Review of Systems Narrative: 12 systems reviewed. Pertinent positives and negatives are as per HPI. [facility] Medical History (Updated 06/12/19 @ 16:39 by Joi Parson MD) Chronic hyponatremia (Acute) Depression (Chronic) GERD (gastroesophageal reflux disease) (Chronic) Hearing loss (Acute) Hyperlipidemia (Inactive) Hypertension (Inactive) Hypothyroidism (Chronic) Non-insulin dependent diabetes mellitus (Acute) Obesity (Chronic) Osteoarthritis (Chronic) Surgical History (Updated 06/12/19 @ 16:32 by Joi Parson MD) No pertinent past surgical history (Acute) Family History (Updated 06/12/19 @ 16:32 by Joi Parson MD) Mother Diabetes Cancer breast cancer Social History (Updated 06/12/19 @ 16:33 by Joi Parson MD) Smoking/Tobacco Use Status: Former Tobacco Use Quit Date: 02/15/14 Pack-years: 60 Tobacco: How many years used: 30 Alcohol Intake: former Drug use: Never Substance use type: does not use Do you feel safe at home: Yes Do you feel safe in your relationship?: Yes Meds Home Medications and Allergies Home Medications Medication Instructions Recorded Confirmed Type aspirin [Aspir-81] 81 mg DAILY 09/01/13 06/12/19 History metformin [Glucophage] 1,000 mg BID 09/01/13 06/12/19 History omeprazole 40 mg DAILY 09/01/13 06/12/19 History oxycodone 5 mg BID PRN 09/01/13 06/12/19 History atorvastatin 40 mg PO DAILY 05/16/19 06/12/19 History capsaicin 1 applic TOPICAL BID 05/16/19 06/12/19 History cyclobenzaprine 10 mg PO TID 05/16/19 06/12/19 History glipizide 5 mg PO BID 05/16/19 06/12/19 History levothyroxine 200 mcg PO DAILY 05/16/19 06/12/19 History lisinopril-hydrochlorothiazide 2 tab PO DAILY 05/16/19 06/12/19 History metoprolol tartrate 75 mg PO DAILY 05/16/19 06/12/19 History ondansetron HCl [Zofran] 4 mg PO Q8H PRN #7 tab 05/16/19 06/12/19 Rx dicyclomine 20 mg PO QID #10 tab 06/10/19 06/12/19 Rx Allergies Allergy/AdvReac Type Severity Reaction Status Date / Time No Known Allergies Allergy Unverified 06/10/19 11:06 Exam Narrative Exam Narrative: General: Pleasant obese male, A&OX3, but forgetful (has difficulty deciding whether his abdominal pain started 2 days ago or 3 weeks ago), laying comfortably flat in bed, cooperative, hard of hearing Neurological: A&Ox3, forgetful, no obvious focal deficits Psychiatric: appropriate speech pattern/content Skin: evidence of healed scars on BUE's from cutting HEENT: Atraumatic, normocephalic, EOMI, MMM, no JVD, mild goiter, no lymphadenopathy Cardiovascular: RRR, no m/r/g Lungs: CTAB Gastrointestinal: soft, nontender, nondistended Genitourinary: deferred Extremities: Has BLE braces on - refuses to have them taken off Results Imaging Additional studies: EKG: HR 78, NSR, no acute ischemia CT abdomen/pelvis 06/10/2019: No acute abdominal or pelvic process. Labs Result diagrams: 06/12/19 12:25 06/12/19 12:25 Labs: Laboratory Results - last 24 hr 06/12/19 06/12/19 06/12/19 12:25 12:25 12:25 WBC 15.92 H RBC 3.72 L Hgb 11.8 L Hct 32.3 L MCV 86.8 MCH 31.7 MCHC 36.5 H RDW 12.5 Plt Count 379 MPV 9.2 Immature Gran % 0.5 Neutrophils % 78.8 Lymphocytes % 11.7 Monocytes % 8.9 Eosinophils % 0.0 Basophils % 0.1 Absolute Neutrophils 12.54 H Absolute Lymphocytes 1.86 Absolute Monocytes 1.42 H Absolute Eosinophils 0.00 Absolute Basophils 0.02 Sodium 120 L* Potassium 3.4 L Chloride 84 L Carbon Dioxide 25.5 Anion Gap 10.5 BUN 12 Creatinine 1.12 Estimated GFR/1.73 m2 >= 60.00 Glucose 116 H Lactate Calcium 10.5 H Total Bilirubin 0.6 AST 35 ALT 39 Alkaline Phosphatase 25 L Total Protein 7.6 Albumin 4.0 Lipase 43 TSH 2.10 Urine Color Urine Clarity Urine pH Ur Specific [place] Urine Protein Urine Ketones Urine Blood Urine Nitrite Urine Bilirubin Urine Urobilinogen Ur Leukocyte Esterase Ur Random Creatinine Ur Random Sodium Ur Random Potassium Urine Glucose 06/12/19 06/12/19 06/12/19 13:15 13:15 13:15 WBC RBC Hgb Hct MCV MCH MCHC RDW Plt Count MPV Immature Gran % Neutrophils % Lymphocytes % Monocytes % Eosinophils % Basophils % Absolute Neutrophils Absolute Lymphocytes Absolute Monocytes Absolute Eosinophils Absolute Basophils Sodium Potassium Chloride Carbon Dioxide Anion Gap BUN Creatinine Estimated GFR/1.73 m2 Glucose Lactate Calcium Total Bilirubin AST ALT Alkaline Phosphatase Total Protein Albumin Lipase TSH Urine Color Yellow Urine Clarity Clear Urine pH 7.0 Ur Specific [place] 1.020 Urine Protein Negative Urine Ketones Negative Urine Blood Negative Urine Nitrite Negative Urine Bilirubin Negative Urine Urobilinogen 0.2 Ur Leukocyte Esterase Negative Ur Random Creatinine 33.37 Ur Random Sodium 45 Ur Random Potassium 32 Urine Glucose Negative 06/12/19 13:30 WBC RBC Hgb Hct MCV MCH MCHC RDW Plt Count MPV Immature Gran % Neutrophils % Lymphocytes % Monocytes % Eosinophils % Basophils % Absolute Neutrophils Absolute Lymphocytes Absolute Monocytes Absolute Eosinophils Absolute Basophils Sodium Potassium Chloride Carbon Dioxide Anion Gap BUN Creatinine Estimated GFR/1.73 m2 Glucose Lactate 1.1 Calcium Total Bilirubin AST ALT Alkaline Phosphatase Total Protein Albumin Lipase TSH Urine Color Urine Clarity Urine pH Ur Specific [place] Urine Protein Urine Ketones Urine Blood Urine Nitrite Urine Bilirubin Urine Urobilinogen Ur Leukocyte Esterase Ur Random Creatinine Ur Random Sodium Ur Random Potassium Urine Glucose Last Vital Signs Temp 36.8 C 06/12/19 13:35 Pulse 76 06/12/19 13:35 Resp 18 06/12/19 13:35 BP 136/67 06/12/19 13:35 Pulse Ox 96 06/12/19 13:35 COVID-19 Screening Traveled to [place] from one of the affected countries or regions?: NO Recent travel in the [place] within the last 14 days?: No Recent out of the country travel within the last 14 days?: No Exposure or possible exposure to illness during travel?: No Had IN PERSON contact w/suspected or confirmed C-19 person: No Have you had the following symptoms in the past few days?: No
--- NOTE | 2019-06-12 17:12 | DI.RAD_ITS ---
EXAM: XR PORTABLE CHEST AP CLINICAL HISTORY: leucocytosis. TECHNIQUE: 2D digital imaging was performed. COMPARISON: ABD FLAT UPRIGHT PA CHEST from 09/01/2013 FINDINGS: LUNGS: Clear. No pleural abnormality seen. HEART: Normal. MEDIASTINUM: Normal. OTHER FINDINGS: None. IMPRESSION: No acute pulmonary findings. DATA REPOSITORY: RADIATION DOSE DELIVERED:
[2019-06-12 17:33] LABS: Bilirubin Negative (Negative); Blood Trace-intact (Negative); Clarity Clear (Clear); Glucose Negative (Negative); Ketones Negative (Negative); Leukocyte Esterase Negative (Negative); Nitrite Negative (Negative); Specific Gravity 1.015 (1.005-1.025); Urobilinogen 0.2 EU/dL (Up TO 0.2)
[2019-06-12 17:37] LABS: Anion Gap 9.7 mmol/L (3-11); BUN 13 mg/dL (7-18); CO2 26.3 mmol/L (21.0-32.0); CREATININE 1.03 mg/dL (0.70-1.30); Calcium 9.8 mg/dL (8.5-10.1); Chloride 86 mmol/L (98-107); Glucose 76 mg/dL (74-106); Potassium 3.2 mmol/L (3.5-5.1)
--- NOTE | 2019-06-12 17:38 | DI.VRAD_ITS ---
PROCEDURE INFORMATION: Exam: XR Chest, 1 View Exam date and time: 06/12/2019 5:26 PM Age: 73 years old Clinical indication: Other: Leucocytosis TECHNIQUE: Imaging protocol: XR of the chest Views: 1 view. COMPARISON: CR ABD FLAT UPRIGHT PA CHEST 09/01/2013 7:24 PM FINDINGS: Lungs: Unremarkable. No consolidation. Pleural space: Unremarkable. No pleural effusion. No pneumothorax. Heart/Mediastinum: Unremarkable. No cardiomegaly. Bones/joints: Unremarkable. IMPRESSION: No acute findings. Dictated and Authenticated by: Beti Donald MD. Ordering:JOSÉ MIGUEL Tamez MD
[2019-06-12 17:40] LABS: Sodium 122 mmol/L (136-145)
[2019-06-12 17:43] LABS: Bacteria Negative HPF (Negative); C & S Indicated? C&S Done As Ordered; Crystals Negative HPF (Negative); Epithelial Cells Negative HPF (Negative); Mucus Negative (Negative); WBC 0-2 HPF (0-5)
[2019-06-12] MEDS: POTASSIUM CHLORIDE 20 MEQ/100 ML BAG 50 MEQ IVPB ×2 (18:15→20:03)
[2019-06-12] MEDS: Normal Saline 1,000 ML 75 ML IV ×2 (18:21→22:20)
[2019-06-12] MEDS: Cyclobenzaprine 10 MG TAB PO (19:41)
[2019-06-12] MEDS: oxyCODONE 5 MG TAB PO (19:41)
[2019-06-12] MEDS: Pantoprazole 40 MG VIAL IVP (19:41)
[2019-06-12] MEDS: Dicyclomine 20 MG TAB PO (19:41)
[2019-06-12] MEDS: Normal Saline Flush 10 ML SYR (19:42)
[2019-06-12 20:46] LABS: Anion Gap 8.8 mmol/L (3-11); BUN 12 mg/dL (7-18); CO2 26.2 mmol/L (21.0-32.0); CREATININE 1.07 mg/dL (0.70-1.30); Calcium 9.3 mg/dL (8.5-10.1); Chloride 86 mmol/L (98-107); Glucose 86 mg/dL (74-106); Potassium 3.3 mmol/L (3.5-5.1)
[2019-06-12 20:51] LABS: Sodium 121 mmol/L (136-145)
[2019-06-13] VITALS (38 sets, daily range): BP systolic 105–159; BP diastolic 55–106; PULSE 61–85; RESP 11–33; TEMP 36.6–36.7; O2SAT 94–99
[2019-06-13 00:55] LABS: Anion Gap 7.5 mmol/L (3-11); BUN 11 mg/dL (7-18); CO2 28.5 mmol/L (21.0-32.0); CREATININE 1.06 mg/dL (0.70-1.30); Calcium 9.3 mg/dL (8.5-10.1); Chloride 88 mmol/L (98-107); Glucose 82 mg/dL (74-106); Potassium 3.4 mmol/L (3.5-5.1)
[2019-06-13 00:57] LABS: Sodium 124 mmol/L (136-145)
[2019-06-13] MEDS: Levothyroxine 200 MCG TAB PO (05:12)
[2019-06-13 06:47] LABS: Abs Immature Grans 0.07 k/cumm (0.0-0.09); Absolute Basophil Count 0.01 k/cumm (0.0-0.2); Absolute Lymphocyte Count 1.67 k/cumm (1.2-3.4); Basophils % 0.1; Eosinophils % 0.1; HCT 34.2 % (40.0-50.0); HGB 12.4 g/dL (13.5-17.5); Immature Grans % 0.5 %; Mean Corp. HGB Concentration 36.3 g/dL (32.0-36.0); Mean Corpuscular Hemoglobin 31.8 pg (27.0-33.0); Mean Corpuscular Volume 87.7 fL (80-95); Mean Platelet Volume 9.7 fL (8.0-11.0); Monocytes % 11.3; Platelet Count 342 x1000/uL (130-400); RBC Distribution Width 12.8 % (11.8-14.1); White Blood Cell Count 13.93 k/cumm (4.4-10.8)
[2019-06-13 06:58] LABS: Absolute Eosinophil Count 0.01 k/cumm (0.0-0.7); Absolute Monocyte Count 1.57 k/cumm (0.11-0.7); Absolute Neutrophil Count 10.59 k/cumm (1.2-6.7)
[2019-06-13 07:00] LABS: Iron 110 ug/dL (65-175); Total Iron Binding Capacity 392 ug/dL (250-450); Transferrin Sat 28 % (20-55)
[2019-06-13 07:28] LABS: Anion Gap 8.9 mmol/L (3-11); BUN 10 mg/dL (7-18); CO2 29.1 mmol/L (21.0-32.0); CREATININE 1.09 mg/dL (0.70-1.30); Calcium 9.2 mg/dL (8.5-10.1); Chloride 86 mmol/L (98-107); Ferritin 32 ng/mL (26-388); Glucose 101 mg/dL (74-106); Magnesium 1.1 mg/dL (1.8-2.4); Potassium 3.5 mmol/L (3.5-5.1); Vitamin B12 649 pg/mL (193-986)
[2019-06-13 07:29] LABS: Folate > 20.0 ng/mL (8.6-20.0); Sodium 124 mmol/L (136-145)
[2019-06-13] MEDS: Pantoprazole 40 MG VIAL IVP (08:10)
[2019-06-13] MEDS: Metoprolol 25 MG TAB 75 MG PO (08:10)
[2019-06-13] MEDS: Cyclobenzaprine 10 MG TAB PO ×3 (08:10→19:46)
[2019-06-13] MEDS: Dicyclomine 20 MG TAB PO ×4 (08:10→19:46)
[2019-06-13] MEDS: Atorvastatin 40 MG TAB PO (08:10)
[2019-06-13] MEDS: Normal Saline Flush 10 ML SYR (08:11)
[2019-06-13] MEDS: Magnesium Chloride 64 MG TABCR 128 MG PO ×2 (08:27→19:46)
[2019-06-13] MEDS: MAGNESIUM SULFATE 4 GM/100 ML BAG IVPB (08:30)
--- NOTE | 2019-06-13 08:51 | PDOC.CMIN ---
- If Service Date Differs Date of service: 06/13/19 Time of Service: 16:40 Care Management Initial Assess REASON FOR HOSPITALIZATION:: Acute hyponatremia, abdominal pain PAST MEDICAL HISTORY/PAST SURGICAL HISTORY:: Chronic hyponatremia, depression, GERD, hearing loss, hyperlipidemia, hypertension, hypothyroidism, non-insulin dependent diabetes mellitus, obesity, osteoarthritis PREVIOUS FUNCTIONAL STATUS/SOCIAL/FAMILY SUPPORTS:: Naveed resides alone in an apartment in [place], [place]. He reports being there for the last fourteen years. He reports utilizing a taxi for transporation to the grocery store to run errands as he prefers not to use RCT. He is independent at baseline, reports no additional services or equipment at this time. CURRENT FUNCTIONAL STATUS:: Naveed is having leg pain and mild weakness, resulting in assistance with ambulation. [facility] which [facility] and MD were actively working on. Once transfer was secured, Naveed then refused transfer, CM spoke with the [facility] who [facility] refusal paperwork which Naveed completed. [facility] to the [facility]. When CM inquired as to why Naveed no longer wished to transfer he stated I just don't. He was pleasant in interaction and answered questions with simple answers. ADVANCE DIRECTIVES:: Reportedly on file at the [facility]: sister Lori Charles as agent. Has patient been provided with information about the portal?: Yes Did the patient sign up for the portal?: No CODE STATUS:: Full Code INSURANCE COVERAGE / FINANCIAL ISSUES:: Medicare. [facility] 's Choice CURRENT HOME/COMMUNITY SERVICES/EQUIPMENT:: No current services or equipment. PRIMARY CARE PHYSICIAN:: Brianne Montano POTENTIAL DISCHARGE NEEDS:: [facility] at [facility]'s request. PATIENT/FAMILY EDUCATION NEEDS:: Review discharge instructions, discuss Ask Me Three. ANTICIPATED BARRIERS TO DISCHARGE:: None identified at this time. TRANSPORTATION:: Via EMS if transferred. PLAN:: Anticipate N[facility]ed will [facility], per bed [facility]. He will transport via EMS. CM will continue to follow.
[2019-06-13 09:34] LABS: COVID-19 RT-PCR UVMMC Result Negative (Negative)
--- NOTE | 2019-06-13 11:19 | W.PM.PROGNOT ---
Date of Service Date of service: 06/13/19 Time of Service: 11:25 Assessment and Plan Assessment and plan (1) Acute hyponatremia: Status: Acute Assessment and plan: on chronic. Improving with IVF, arguing against SIADH. No evidence of pulmonary masses. Increase rate of IVF. Keep holding lisinopril/hctz - the patient should not be on this regimen on discharge. Transfer out of ICU. (2) Abdominal pain: Status: Acute Assessment and plan: suspicious for gastric ulcer, gastritis, gastroparesis. Consult general surgery for EGD. Order gastric emptying study. (3) Leucocytosis: Status: Acute Assessment and plan: Appears to be chronic. Prior workup unavailable to me. No evidence of acute infection by UA/CXR/CT 2 days ago. Gastric ulcer can cause leucocytosis. Will pursue GI workup as above. (4) Hypokalemia: Status: Resolved Assessment and plan: Repleted (5) Hypomagnesemia: Status: Acute Assessment and plan: Severe. Replete and continue to monitor on tele., (6) Obesity, morbid, BMI 40.0-49.9: Status: Acute Assessment and plan: High suspicion for pulmonary hypertension/JONATHON. Obtain echo. Will need sleep study. Depending on echo results, may not be a candidate for EGD at our facility. (7) DVT prophylaxis: Status: Acute Assessment and plan: TEDs/SCDs. (8) Discharge planning issues: Status: Acute Assessment and plan: Full code. Transfer to [facility] floor. No longer wants transfer to the DC - DC made aware. Subjective Subjective Interval history since last seen: Now states he does not want to go to the DC. He just does not want to go to a different hospital. Denies dizziness, chest pain, shortness of breath, nausea. Now states he did have abdominal pain yesterday afternoon, but no longer does. Had a hemoccult negative BM. COVID negative. Exam Narrative Exam Narrative: General: Pleasant obese male, A&OX3, does seem more attentive today HEENT: EOMI, MMM Cardiovascular: RRR, no m/r/g Lungs: CTAB Gastrointestinal: soft, nontender, nondistended Extremities: TEDs on Objective Objective Clinical Data: Abnormal lab results 06/12/19 06/12/19 06/12/19 Range/Units 12:25 12:25 17:00 WBC 15.92 H (4.4-10.8) k/cumm RBC 3.72 L (4.50-6.00) m/cumm Hgb 11.8 L (13.5-17.5) g/dL Hct 32.3 L (40.0-50.0) % MCHC 36.5 H (32.0-36.0) g/dL Absolute Neutrophils 12.54 H (1.2-6.7) k/cumm Absolute Monocytes 1.42 H (0.11-0.7) k/cumm Sodium 120 L* (136-145) mmol/L Potassium 3.4 L (3.5-5.1) mmol/L Chloride 84 L (98-107) mmol/L Glucose 116 H (74-106) mg/dL Calcium 10.5 H (8.5-10.1) mg/dL Magnesium (1.8-2.4) mg/dL Alkaline Phosphatase 25 L (46-116) U/L Folate (8.6-20.0) ng/mL Urine Blood Trace-intact H (Negative) Urine RBC 3-5 H (0-2) [facility] 06/12/19 06/12/19 06/13/19 Range/Units 17:15 20:15 00:35 WBC (4.4-10.8) k/cumm RBC (4.50-6.00) m/cumm Hgb (13.5-17.5) g/dL Hct (40.0-50.0) % MCHC (32.0-36.0) g/dL Absolute Neutrophils (1.2-6.7) k/cumm Absolute Monocytes (0.11-0.7) k/cumm Sodium 122 L* 121 L* 124 L* (136-145) mmol/L Potassium 3.2 L 3.3 L 3.4 L (3.5-5.1) mmol/L Chloride 86 L 86 L 88 L (98-107) mmol/L Glucose (74-106) mg/dL Calcium (8.5-10.1) mg/dL Magnesium (1.8-2.4) mg/dL Alkaline Phosphatase (46-116) U/L Folate (8.6-20.0) ng/mL Urine Blood (Negative) Urine RBC (0-2) HPF 06/13/19 06/13/19 Range/Units 06:15 06:15 WBC 13.93 H (4.4-10.8) k/cumm RBC 3.90 L (4.50-6.00) m/cumm Hgb 12.4 L (13.5-17.5) g/dL Hct 34.2 L (40.0-50.0) % MCHC 36.3 H (32.0-36.0) g/dL Absolute Neutrophils 10.59 H (1.2-6.7) k/cumm Absolute Monocytes 1.57 H (0.11-0.7) k/cumm Sodium 124 L* (136-145) mmol/L Potassium (3.5-5.1) mmol/L Chloride 86 L (98-107) mmol/L Glucose (74-106) mg/dL Calcium (8.5-10.1) mg/dL Magnesium 1.1 L (1.8-2.4) mg/dL Alkaline Phosphatase (46-116) U/L Folate > 20.0 H (8.6-20.0) ng/mL Urine Blood (Negative) Urine RBC (0-2) HPF Vital Signs Temperature 36.7 C 06/13/19 07:55 Temperature Source Temporal Artery Scan 06/13/19 07:55 Pulse 67 06/13/19 10:27 Pulse 70 06/13/19 10:27 Respiratory Rate 24 06/13/19 10:27 Respiratory Effort 06/13/19 07:55 Respiratory Depth Normal 06/13/19 07:55 Respiratory Pattern Normal 06/13/19 07:55 Blood Pressure 142/72 H 06/13/19 10:27 Blood Pressure Mean 82 06/13/19 10:27 Blood Pressure Position Sitting 06/13/19 07:55 Pulse Oximetry 98 06/13/19 10:27 Oxygen Delivery Method Room Air 06/13/19 07:55 Oxygen Flow Rate 0 06/13/19 07:55 Pain Level 0 06/13/19 07:55 Intake & Output 06/12/19 06/12/19 06/13/19 11:59 23:59 11:59 Intake Total 758.750 / 326.147 0292 / 1140 Output Total 1700 / 1700 1999 Balance -941.250 / -941.250 -860 / -860 Weight 130.2 kg Intake: IV 758.750 / 758.750 100 / 100 Oral 1040 / 1040 Output: Urine 1700 / 1700 1999 Other: Urine Color Pale Yellow Yellow Urine Appearance Clear Clear Urine Odor Strong Comment ferrell in place, patent drainging clear yellow urine ferrell in place, patent draining clear yellow urine. Stool Occult Blood Negative Stool Size Large Stool Characteristics Formed Laboratory Results WBC 13.93 k/cumm (4.4-10.8) H 06/13/19 06:15 RBC 3.90 m/cumm (4.50-6.00) L 06/13/19 06:15 Hgb 12.4 g/dL (13.5-17.5) L 06/13/19 06:15 Hct 34.2 % (40.0-50.0) L 06/13/19 06:15 MCV 87.7 fL (80-95) 06/13/19 06:15 MCH 31.8 pg (27.0-33.0) 06/13/19 06:15 MCHC 36.3 g/dL (32.0-36.0) H 06/13/19 06:15 RDW 12.8 % (11.8-14.1) 06/13/19 06:15 Plt Count 342 x1000/uL (130-400) 06/13/19 06:15 MPV 9.7 fL (8.0-11.0) 06/13/19 06:15 Immature Gran % 0.5 % 06/13/19 06:15 Neutrophils % 76.0 06/13/19 06:15 Lymphocytes % 12.0 06/13/19 06:15 Monocytes % 11.3 06/13/19 06:15 Eosinophils % 0.1 06/13/19 06:15 Basophils % 0.1 06/13/19 06:15 Absolute Neutrophils 10.59 k/cumm (1.2-6.7) H 06/13/19 06:15 Absolute Lymphocytes 1.67 k/cumm (1.2-3.4) 06/13/19 06:15 Absolute Monocytes 1.57 k/cumm (0.11-0.7) H 06/13/19 06:15 Absolute Eosinophils 0.01 k/cumm (0.0-0.7) 06/13/19 06:15 Absolute Basophils 0.01 k/cumm (0.0-0.2) 06/13/19 06:15 Sodium 124 mmol/L (136-145) L* 06/13/19 06:15 Potassium 3.5 mmol/L (3.5-5.1) 06/13/19 06:15 Chloride 86 mmol/L (98-107) L 06/13/19 06:15 Carbon Dioxide 29.1 mmol/L (21.0-32.0) 06/13/19 06:15 Anion Gap 8.9 mmol/L (3-11) 06/13/19 06:15 BUN 10 mg/dL (7-18) 06/13/19 06:15 Creatinine 1.09 mg/dL (0.70-1.30) 06/13/19 06:15 Estimated GFR/1.73 m2 >= 60.00 (mL/min/1.73m2) 06/13/19 06:15 Glucose 101 mg/dL (74-106) 06/13/19 06:15 Lactate 1.1 mmol/L (0.6-1.4) 06/12/19 13:30 Calcium 9.2 mg/dL (8.5-10.1) 06/13/19 06:15 Magnesium 1.1 mg/dL (1.8-2.4) L 06/13/19 06:15 Iron 110 ug/dL (65-175) 06/13/19 06:15 TIBC 392 ug/dL (250-450) 06/13/19 06:15 Transferrin % Sat 28 % (20-55) 06/13/19 06:15 Ferritin 32 ng/mL (26-388) 06/13/19 06:15 Total Bilirubin 0.6 mg/dL (0.2-1.0) 06/12/19 12:25 AST 35 U/L (15-37) 06/12/19 12:25 ALT 39 U/L (16-63) 06/12/19 12:25 Alkaline Phosphatase 25 U/L (46-116) L 06/12/19 12:25 Total Protein 7.6 g/dL (6.4-8.2) 06/12/19 12:25 Albumin 4.0 g/dL (3.4-5.0) 06/12/19 12:25 Lipase 43 U/L (73-393) 06/12/19 12:25 Vitamin B12 649 pg/mL (193-986) 06/13/19 06:15 Folate > 20.0 ng/mL (8.6-20.0) H 06/13/19 06:15 TSH 2.10 uIU/mL (0.36-3.74) 06/12/19 12:25 Urine Color Yellow (Yellow) 06/12/19 17:00 Urine Clarity Clear (Clear) 06/12/19 17:00 Urine pH 7.0 (5-8) 06/12/19 17:00 Ur Specific [place] 1.015 (1.005-1.025) 06/12/19 17:00 Urine Protein Negative mg/dL (Negative) 06/12/19 17:00 Urine Ketones Negative mg/dL (Negative) 06/12/19 17:00 Urine Blood Trace-intact (Negative) H 06/12/19 17:00 Urine Nitrite Negative (Negative) 06/12/19 17:00 Urine Bilirubin Negative (Negative) 06/12/19 17:00 Urine Urobilinogen 0.2 EU/dL (Up TO 0.2) 06/12/19 17:00 Ur Leukocyte Esterase Negative (Negative) 06/12/19 17:00 Urine RBC 3-5 HPF (0-2) H 06/12/19 17:00 Urine WBC 0-2 HPF (0-5) 06/12/19 17:00 Ur Epithelial Cells Negative HPF (Negative) 06/12/19 17:00 Urine Crystals Negative HPF (Negative) 06/12/19 17:00 Urine Bacteria Negative HPF (Negative) 06/12/19 17:00 Urine Mucus Negative (Negative) 06/12/19 17:00 Ur Culture Indicated? C&s done as ordered 06/12/19 17:00 Ur Random Creatinine 33.37 mg/dL 06/12/19 13:15 Ur Random Sodium 45 mmol/L 06/12/19 13:15 Ur Random Potassium 32 mmol/L 06/12/19 13:15 Urine Glucose Negative mg/dL (Negative) 06/12/19 17:00 COVID-19 PCR Negative (Negative) 04/27/20 13:45 Nasopharyn COVID-19 PCR Not Applicable 06/12/19 13:45 Ref Test Perform Site [facility] hospital lab 06/12/19 13:45 CXR: No acute pulmonary findings.
--- NOTE | 2019-06-13 11:30 | DI.US_ITS ---
APPROVED REPORT EXAM: Comprehensive 2D, Doppler, and color-flow Echocardiogram Patient Location: In-Patient Room/Bed: 221A Box Blank Machine Operator: Liana Fuentes RDCS (AE) Indications: Suspected pulmonary hypertension Other Information Technically limited study due to body habitus. Conclusion Left Ventricle : The left ventricle is normal size. The overall left ventricular systolic function ap pears normal. There is normal left ventricular wall thickness. There is normal LV segmental wall reese on. The left ventricular diastolic function is normal. LVEF is 55-60%. Right Ventricle : Right ventricle is not well visualized. Right ventricular systolic function could n ot be assessed. The RVSP is 21.3 mmHg. Atria : The right atrium size is normal. Left atrium is normal in size. Valves: There are no hemodynamically significant valvular lesions. Great Vessels : IVC is normal in size and collapses >50% with inspiration. There is no prior echocardiogram available for comparison. Wall motion Left Ventricle The left ventricle is normal size. The overall left ventricular systolic function appears normal. The re is normal left ventricular wall thickness. There is normal LV segmental wall motion. The left vent ricular diastolic function is normal. There is no ventricular septal defect visualized. LVEF is 55-60 %. Right Ventricle Right ventricle is not well visualized. Right ventricular systolic function could not be assessed. Th e RVSP is 21.3 mmHg. Atria Left atrium is normal in size. The right atrium size is normal. The interatrial septum is intact with no evidence for an atrial septal defect. Aortic Valve The aortic valve is not well visualized. There is no aortic valvular stenosis. No aortic regurgitatio n is present. Mitral Valve There is mitral annular calcification. No evidence of mitral valve stenosis. Trace mitral regurgitati on. Tricuspid Valve The tricuspid valve is normal in structure. There is no tricuspid valve stenosis. Trace tricuspid reg urgitation. Pulmonic Valve Pulmonic valve is not well visualized. There is no pulmonic valvular stenosis. The pulmonic valve is not well visualized. Great Vessels The aortic root is normal in size. Ascending aorta is not well visualized. Aortic arch is not well vi sualized. IVC is normal in size and collapses >50% with inspiration. Pericardium There is no pericardial effusion. There is no pleural effusion. 2D Dimensions IVSD d PLAX 0.96 cm M: 0.6-1.2 LV Vol A2C d MOD 114.7 mL LVPW d PLAX 1.04 cm M: 0.6 - 1.2 LV Vol A4C d MOD 147.3 mL LVID d PLAX 4.64 cm M: 4.2 - 5.8 LA vol/ BSA A2C s A-L 13.3 mL/m2 LVDs 3.60 cm M: 2.5 - 4.0 LA vol/ BSA A4C s A-L 22.0 mL/m2 Ao Root d 3.17 cm M: 3.1 - 3.7 LA Vol/ BSA Biplane s A-L 19.3 mL/m2 RA Area A4C 14.89 cm2 LA Area A4C s MOD 19.38 cm2 RA Vol/ BSA A4C s A-L 19.2 mL/m2 LA Area A2C s MOD 13.34 cm2 LV EF Teichholz 44.4 % LV EF A4C MOD 62.8 % LVEF (Calderón's) 59.74 % M: 52 - 72 LV EF A2C MOD 56.1 % LV Volume 93.79 mL M: 62 - 150 LV EF Biplane MOD 59.7 % LV Volume Index 39.91 mL/m2 M: 34 - 74 LV Vol Biplane MOD 131.7 mL FS 21.95 % M-Mode TAPSE 3.15 cm (M/F) >1.7 LV Diastology E Decel Time 288.00 (160-240 msec) E/A Ratio 0.7 MV E' medial 0.062 (>0.07 m/s) MV E Vmax 0.66 (0.4-1.3 m/s) LV E/e MED 10.50 (<14) MV A Vmax 0.90 (0.4-1.3 m/s) MV E' lateral 0.075 (>0.1 m/s) MV E/A Ratio 0.70 LV E/e LAT 8.75 (<14) MV E/E' medial 10.51 MV E/E' lateral 8.79 E Peak Velocity 0.66 m/s A Peak Velocity 0.93 m/s Aortic Valve LVOT Vmax 1.18 m/s LVOT Mean Tay. 0.72 m/s LVOT Peak Grad 5.6 mmHg LVOT Mean Grad 2.5 mmHg LVOT VTI 0.248 m LVOT Diam s 2.00 cm (M/F) 1.5-2.5 AoV Vmax 1.07 (0.5-1.3 m/s) Velocity Ratio 1.10 AoV Mean Tay. 0.79 m/s AoV Peak Grad 4.6 mmHg AoV Mean Grad 2.7 (<5 mmHg) AoV VTI 0.219 (0.18-0.25 m) Mitral Valve MV DT 288 (160-240 msec) MV PHT 84 msec MV Area PHT 2.63 cm2 Pulmonary Valve PV Vmax 0.99 (0.5-1.5 m/s) RVOT Peak Gr. 1.35 mmHg PV Peak Grad 3.9 mmHg RVOT Mean Gr. 0.75 mmHg PV Mean Grad 2.4 mmHg RVOT VTI 0.127 m PV VTI 0.188 m RVOT Vmax 0.58 m/s Tricuspid Valve TR Peak Grad 18.2 mmHg TR Vmax 2.14 m/s RA Pressure 3.00 mmHg RVSP (TR) 21.3 mmHg
[2019-06-13] MEDS: Normal Saline 1,000 ML 125 ML IV (12:23)
[2019-06-13 12:39] LABS: Anion Gap 7.5 mmol/L (3-11); BUN 9 mg/dL (7-18); CO2 26.5 mmol/L (21.0-32.0); CREATININE 1.09 mg/dL (0.70-1.30); Calcium 9.1 mg/dL (8.5-10.1); Chloride 88 mmol/L (98-107); Glucose 121 mg/dL (74-106); Potassium 3.5 mmol/L (3.5-5.1)
[2019-06-13 12:48] LABS: Sodium 122 mmol/L (136-145)
--- NOTE | 2019-06-13 13:06 | PHA.REVIEW ---
Pharmacy Admission Review - Admission Clinical Review (Last Updated 06/12/19 @ 16:31 by Joi Parson MD) Obesity, morbid, BMI 40.0-49.9 (Acute) Hypomagnesemia (Acute) Discharge planning issues (Acute) DVT prophylaxis (Acute) Leucocytosis (Acute) Acute hyponatremia (Acute) Abdominal pain (Acute) No Known Allergies Allergy (Unverified 06/10/19 11:06) Height 5 ft 7 in Weight 130.2 kg - Renal Dosing Renal Dosing: BUN 9 mg/dL (7-18) 06/13/19 11:52 Creatinine 1.09 mg/dL (0.70-1.30) 06/13/19 11:52 Medications needing adjustments: Reviewed (CRCL~ 58ML/MIN) - Anticoagulation Anticoagulation: Hgb 12.4 g/dL (13.5-17.5) L 06/13/19 06:15 Hct 34.2 % (40.0-50.0) L 06/13/19 06:15 Plt Count 342 x1000/uL (130-400) 06/13/19 06:15 Creatinine 1.09 mg/dL (0.70-1.30) 06/13/19 11:52 DVT Prohphylaxis: Reviewed (TEDs/SCDs) Therapeutic Anticoagulation: N/A - Opiate Usage Evaluate Pain Scale/Pains Meds: Reviewed Scheduled Bowel Reg ordered if on Opiates?: No (prn meds ) - Relevant Labs Sodium 122 mmol/L (136-145) L* 06/13/19 11:52 Potassium 3.5 mmol/L (3.5-5.1) 06/13/19 11:52 Chloride 88 mmol/L (98-107) L 06/13/19 11:52 Magnesium 1.1 mg/dL (1.8-2.4) L 06/13/19 06:15 Electrolytes, C-Reactive P, ESR: Reviewed (Mag replacement ordered, NS IVF) - DM Control DM Control: Glucose 121 mg/dL (74-106) H 06/13/19 11:52 Finger Stick Blood Glucose 116 Finger Stick Blood Glucose 116 Finger Stick Blood Glucose 113 Finger Stick Blood Glucose 113 Insulin Dosing: Reviewed (insulin aspart SS) - BP Control BP Control: Blood Pressure [Left Arm] 134/69 Blood Pressure [Left Arm] 144/72 Blood Pressure 110/66 Blood Pressure 142/72 Blood Pressure 134/69 Blood Pressure 159/78 - Qtc Review If Elevated: Reviewed (408) - IV to PO Switch IV Medications: Reviewed (IVF, Pantoprazole IV) - Home Meds Home Med List reviewed: Reviewed Relevent Home Meds Not ordered & why?: glipizide, metformin(insulin aspart while inpt). lisinopril/HCTZ(hyponatremia). omeprazole(on pantoprazole Iv as inpt) - Current meds Current Medication Order Review: Reviewed - Comments Comments/Follow Ups: watch Na , Mag for replacement needs
--- NOTE | 2019-06-13 15:12 | CHAPLAIN ---
Naveed was sitting up on the edge of his bed when I visited this afternoon. He told me he is originally from [place], [place] and moved here to get away from the teenagers and the crime. He likes living in a more isolated place and has made friends here. Naveed said he has not been sick before in his life, except for getting his tonsils out, so he is surprised he is not well now.
[2019-06-13 18:38] LABS: Anion Gap 5.9 mmol/L (3-11); BUN 10 mg/dL (7-18); CO2 26.1 mmol/L (21.0-32.0); Calcium 8.5 mg/dL (8.5-10.1); Chloride 91 mmol/L (98-107); Estimated GFR 59.68 (mL/min/1.73m2); Glucose 201 mg/dL (74-106); Potassium 3.6 mmol/L (3.5-5.1)
[2019-06-13 18:43] LABS: Sodium 123 mmol/L (136-145)
[2019-06-14] VITALS (14 sets, daily range): BP systolic 108–142; BP diastolic 61–71; PULSE 66–97; RESP 16–28; TEMP 36.4–36.8; O2SAT 97–98
[2019-06-14] MEDS: Levothyroxine 200 MCG TAB PO (06:03)
[2019-06-14 06:53] LABS: Abs Immature Grans 0.06 k/cumm (0.0-0.09); Absolute Basophil Count 0.01 k/cumm (0.0-0.2); Absolute Eosinophil Count 0.03 k/cumm (0.0-0.7); Absolute Lymphocyte Count 1.71 k/cumm (1.2-3.4); Absolute Monocyte Count 1.49 k/cumm (0.11-0.7); Absolute Neutrophil Count 9.26 k/cumm (1.2-6.7); Basophils % 0.1; Eosinophils % 0.2; HCT 32.6 % (40.0-50.0); HGB 11.5 g/dL (13.5-17.5); Immature Grans % 0.5 %; Lymphocytes % 13.6; Mean Corp. HGB Concentration 35.3 g/dL (32.0-36.0); Mean Corpuscular Hemoglobin 31.5 pg (27.0-33.0); Mean Corpuscular Volume 89.3 fL (80-95); Mean Platelet Volume 9.6 fL (8.0-11.0); Monocytes % 11.9; Neutrophils % 73.7; Platelet Count 355 x1000/uL (130-400); RBC 3.65 m/cumm (4.50-6.00); RBC Distribution Width 13.1 % (11.8-14.1); White Blood Cell Count 12.56 k/cumm (4.4-10.8)
[2019-06-14 07:07] LABS: Anion Gap 4.7 mmol/L (3-11); BUN 9 mg/dL (7-18); CO2 29.3 mmol/L (21.0-32.0); CREATININE 1.06 mg/dL (0.70-1.30); Calcium 8.9 mg/dL (8.5-10.1); Chloride 93 mmol/L (98-107); Glucose 127 mg/dL (74-106); Magnesium 1.8 mg/dL (1.8-2.4); Potassium 3.6 mmol/L (3.5-5.1); Sodium 127 mmol/L (136-145)
[2019-06-14] MEDS: Atorvastatin 40 MG TAB PO (07:26)
[2019-06-14] MEDS: Dicyclomine 20 MG TAB PO ×3 (07:26→16:48)
[2019-06-14] MEDS: Magnesium Chloride 64 MG TABCR 128 MG PO (07:26)
[2019-06-14] MEDS: Normal Saline Flush 10 ML SYR ×2 (07:27→07:29)
[2019-06-14] MEDS: Cyclobenzaprine 10 MG TAB PO ×2 (07:27→13:34)
[2019-06-14] MEDS: Pantoprazole 40 MG VIAL IVP (07:27)
[2019-06-14] MEDS: Metoprolol 25 MG TAB 75 MG PO (07:27)
[2019-06-14] MEDS: Insulin Aspart 300 UNITS/3 ML PEN SC (07:33)
--- NOTE | 2019-06-14 08:00 | DI.NM_ITS ---
CLINICAL HISTORY: suspected gastroparesis. COMPARISON: No exams were available for comparison EXAMINATION: PO Dose: 1 mCi Sulfur colloid in test meal. Images: According to protocol. FINDINGS: Patient gastric emptying results: 1 hour: 42.7% [facility] normal gastric range: 37-90% residual. 2 hour: 23.2% [facility] normal gastric range: 30-60% residual. 4 hour: 0.7% [facility] normal gastric range: 0-10% residual. T 1/2: 47 minutes. IMPRESSION: 1. No evidence of delayed gastric emptying. SNM guidelines: 40% or more gastric emptying at 90 minutes is considered normal. Normal T 1/2 < 50 mi nutes. < 30% at 1 hour signifies abnormal rapid gastric emptying.
--- NOTE | 2019-06-14 10:29 | CMPROGNOTE_ITS ---
Care Management Progress Note S/O: Naveed continues to be closely monitored at this time. He will have a PT consult and continue to have a GI workup and an ECHO today to inform further treatment needs. CM continues to follow. A: 73 year old male admitted to [facility] for Acute Hyponatremia, Abdominal Pain P: Anticipate Naveed will return home when ready per MD. Undetermined if he will require additional services at this time. CM will continue to follow.
[2019-06-14 14:23] LABS: Anion Gap 5.3 mmol/L (3-11); BUN 10 mg/dL (7-18); CO2 29.7 mmol/L (21.0-32.0); CREATININE 1.04 mg/dL (0.70-1.30); Calcium 8.8 mg/dL (8.5-10.1); Chloride 93 mmol/L (98-107); Glucose 105 mg/dL (74-106); Potassium 3.8 mmol/L (3.5-5.1); Sodium 128 mmol/L (136-145)
[2019-06-14] MEDS: oxyCODONE 5 MG TAB PO (14:45)
--- NOTE | 2019-06-14 15:00 | IN_ITS ---
Date of service: 06/14/19 Time of Service: 14:25 PT Notes Visit Reasons: ACUTE HYPONATREMIA, ABDOMINAL PAIN Inpatient Physical Therapy Evaluation Date: June 14, 2019 Referring Doctor: Joi Parson PT Orders: PT CONSULT: Limited Ability Precautions: Falls, Standard Patient Profile/Admitting Diagnosis: Naveed is a 73 year old male with PMHx of NIDDM2, HTN, hyperlipidemia, chronic hyponatremia, hypothyroidism, GERD, who was seen at [facility] ED on 06/10/2019 with epigastric-midabdominal pain and discharged home after having negative imaging, and returned with recurrent abdominal pain, noting increase after he eats. PMHX: Updated 06/12/19 @ 16:39 by Joi Parson MD) Chronic hyponatremia (Acute) Depression (Chronic) GERD (gastroesophageal reflux disease) (Chronic) Hearing loss (Acute) Hyperlipidemia (Inactive) Hypertension (Inactive) Hypothyroidism (Chronic) Non-insulin dependent diabetes mellitus (Acute) Obesity (Chronic) Osteoarthritis (Chronic) Surgical History (Updated 06/12/19 @ 16:32 by Joi Parson MD) No pertinent past surgical history (Acute) Social History/Home Situation: Naveed notes that he lives alone in a second story apartment in [facility]. He reports that there is a railing to assist in stair climbing. He reports I at baseline without assistive device other than bilateral knee braces due to OA. He does not drive and utilizes taxi service for all his MD appts and grocery shopping. He is independent in meal prep however tends to eat a lot of heat up meals in the microwave. Current Functional Limitations: Limited activity tolerance. Equipment Owned/DME: Bilateral knee braces Subjective: Naveed notes that he is overall feeling better. He declines any pain at time of PT consult. He was agreeable to PT consult this afternoon. Objective: General Observation: telemetry, bilateral SRAVAN stocking, Patient up sitting on edge of bed at time of PT consult Mental Status: Alert and oriented x3 Pain: 0/10 at time of PT consult, reporting pain in the left knee post ambulation 9/10 ROM: Right Upper Extremity: Shoulder flexion 140 degrees, abduction 145 degrees, ER 4 5 degrees, demonstrates WNL elbow, forearm, and wrist ROM Left Upper Extremity: Shoulder flexion 150 degrees, abduction 150 degrees, ER 45 degrees, demonstrates WNL elbow, forearm, and wrist ROM Right Lower Extremity: Hip flexion 95 degrees, knee flexion 100 degrees, knee extension lacking 10 degrees, WFL DF/PF Left Lower Extremity: Hip flexion 95 degrees, knee flexion 100 degrees, knee extension lacking 10 degrees, WFL DF/PF Strength: Right Upper Extremity: Demonstrates 5/5 right UE strength Left Upper Extremity: Demonstrates 5/5 left UE strength Right Lower Extremity: Demonstrates 4/5 hip flexion, 5/5 knee extension, 4/5 knee flexion, 5/5 DF/PF Left Lower Extremity: Demonstrates 4/5 hip flexion, 5/5 knee extension, 4/5 knee flexion, 5/5 DF/PF Sensation: N/T Bed Mobility/Transfers: Sit-stand: Supervision Stand-sit: supervision bed-chair: supervision Gait: Patient ambulated with use of FWW 25ftx2 SBA with FWB. Patient did not utilize his knee braces during ambulation. However notes increased irritation post primarily in the left knee. Patient independently donned his braces post ambulation. Balance: Static Sitting: Normal Dynamic Sitting: Normal Static Standing: Good Dynamic Standing: Fair Special Tests: Mobility Limitations Standardized Measure [facility] AM-PAC 6 clicks Basic Mobility Inpatient Short Form: Raw Score: 20 CMS Score: 35.83% Informed Consent/Education: Patient instructed in purpose of PT consult and plan of care. Assessment: Patient is a 73 year old male referred to physical therapy services with the diagnosis of acute hyponatremia and abdominal pain. Patient presents with clinical signs and symptoms consistent with diagnosis, Patient presents with functional mobility decline, dependent ADLs, need for an assistive device for gait, decreased activity tolerance, generalized weakness. Patient presents with clinical signs and symptoms consistent with current/admitting diagnoses that have resulted to mobility limitations, gait instability, generalized weakness, and impairment of motor control as demonstrated by the following impairment level findings: 1. Decreased strength to B LE major muscle groups 2. Impaired standing balance 3. Impaired activity tolerance 4. Chronic limitation of joint range of motion in bilateral knees Impairments are contributing to the following functional limitations: 1. Increased dependence with transfers 2. Inability to safely ambulate without assistive device and physical assistance 3. Increase completion time for mobility ADL performance 4. Inability to negotiate steps alone safely Patient is assessed as a Moderate 63576 complexity based on the following: History: As above Examination: As above Presentation: Evolving Decision Making: Moderate Goals: Goals X1 week 1. Supine-Sit Independent 2. Sit-Supine Independent 3. Sit-Stand Independent 4. Stand-Sit Independent 5. Bed-Chair Independent with use of least restrictive assistive device 6. Chair-Bed Independent with use of least restrictive assistive device 7. Gait Independnet with use of least restrictive assistive device 200 ft or greater 8. Stairs ascend and descend a flight of stairs with use of railing 9. Independent with home exercise program 10. Improved dynamic standing balance good Plan of Care/Treatment Plan: 1-2x/day, 7 days/week x 1 week. Plan of care has been reviewed with the [employer] providing the service under Physical Therapy direction. Initiate Physical Therapy intervention for strengthening, bed mobility, transfers, gait, stairs, balance training, use of assistive device. DISCHARGE RECOMMENDATIONS: Patient may need FWW or walking sticks to promote improved independence and safety with gait. Patient to return home once medically cleared. TREATMENT CODE/TIME: 44819 25 minutes 14:25PM Thank you for this referral. Chandni Irving, MPT [facility]
--- NOTE | 2019-06-14 16:02 | W.INDIABCONS ---
Date of service: 06/14/19 Time of Service: 15:30 Diabetes Inpatient Consult DESCRIPTION/ASSESSMENT: 72 y/o male w/ DM, morbid obesity, GERD, admitted for abdominal pain. Currently on Full lx diet per MD r/t gastric emptying procedure. Reports good appetite and intake prior to admission. He reports he is consuming 75-100% of his current diet at meals. Uses insulin at home and on glipzide. He was familiar with prescribed doses on both meds and understands to consult MD or PCP if he has any issues with DM meds.Recent labs ( 06/13) indicate BG 127 and Na 127 (L). C/O diarrhea on admission which he says is now resolved. Reviewed his diet hx and advised patient on CHO counting and the amount of CHO per each meal period. CDM will F/U when taking his meal orders when his diet is upgraded to help with mindfulness regarding the 65/CHO per meal period as an aid to help control BG levels. Explained the risks and benefits of diet compliance, reviewed sample menus, discussed label reading tips and provided DM educational literature. Reminded patient that portion control could lead to desirable weight loss. Noted: BMI of 44.3 at this time. INTERVENTION: DM edu provided. F/U for potential diet advance. Recommend A1C labs. PLAN: Monitor weights, Labs, BG, take home literature and contact info provided Time Spent in Nutritional Counseling and Treatment: 15
--- NOTE | 2019-06-14 16:16 | W.PM.DS.N ---
Date of service: 06/14/19 Time of Service: 16:16 DS: Diagnosis Discharge Diagnosis (1) Acute hyponatremia: Status: Chronic Asessment and Plan: Acute on chronic hyponatremia, sodium back to patient's baseline of 128. (2) Toxic metabolic encephalopathy: Status: Resolved Asessment and Plan: In setting of hyponatremia (3) Abdominal pain: Status: Resolved Asessment and Plan: Will need an outpatient EGD (4) Leucocytosis: Status: Chronic Asessment and Plan: Will need outpatient f/u (5) Hypokalemia: Status: Resolved (6) Hypomagnesemia: Status: Resolved (7) Obesity, morbid, BMI 40.0-49.9: Status: Acute (8) Hypertension: Status: Chronic (9) COVID-19 ruled out: Status: Acute Discharge Plan Disposition Patient Disposition: HOME W/HOME HEALTH SERVICE Condition: Stable Discharge Details Chief Complaint: Abd Prob Reason For Visit: ACUTE HYPONATREMIA, ABDOMINAL PAIN Admit Date/Time: 06/12/19 13:14 Admit Provider: Joi Parson Attending Provider: Joi Parson Primary Care Provider: Brianne Montano ED Provider: Naye Sin [facility] Course Hospital Course: Mr Arguelles is a 73 year old male with PMHx of NIDDM2, HTN, hyperlipidemia, obesity with BMI of 44.3, who was admitted to [facility] ICU under the hospitalist service on 06/12/2019 with acute on chronic hyponatremia with sodium of 120 and mild encephalopathy in that setting. Initially the sodium responded to volume repletion, while his HCTZ/lisinopril were discontinued (they are not being resumed on discharge; instead, the patient will go home with norvasc 2.5 mg PO daily). After sodium reached 124, it no longer responded to volume, and the patient autodiuresed large amount. He was transferred out of the ICU on 06/13/2019. With IVF off, he was able to concentrate to the sodium of 128 on his own. While there was complains of abdominal pain that lead the patient to not eat for 2 days prior to the hospitalization, his imaging was negative in the ER 2 days prior to this admission. His case was discussed with general surgery. The patient does need an outpatient EGD, which will need to be coordinated by PCP. He did have a negative gastric emptying study, ruling out gastroparesis as cause of abdominal pain. Constipation could also have been a contributor. At this time, the patient is medically stable for discharge home with home health nursing to help him with medications/teaching. He refused home health PT. He will need a sleep study as outpatient as there is a strong suspicion that he has obstructive sleep apnea based on his breathing pattern at night here. It needs to be mentioned that immediately after admission, the patient requested transfer to the [facility], which was initiated. The following day, the patient refused said transfer. Care for patient as well as completion of his discharge summary took 45 minutes on the day of discharge. Home Meds and New Rx's Prescriptions: New docusate sodium [Colace] 100 mg Capsule 100 mg PO BID Qty: 60 RF: 0 magnesium chloride [Mag 64] 64 mg Tablet,Delayed Release (Dr/Ec) 128 mg PO BID Qty: 60 RF: 0 amlodipine [Norvasc] 2.5 mg tablet 2.5 mg PO DAILY Qty: 30 RF: 0 Continued aspirin [Aspir-81] 81 MG tablet,delayed release (DR/EC) 81 mg DAILY RF: 0 metformin [Glucophage] 1,000 MG tablet 1,000 mg BID RF: 0 oxycodone 5 MG tablet 5 mg BID PRNRF: 0 cyclobenzaprine 10 mg Tablet 10 mg PO TID RF: 0 atorvastatin 40 mg Tablet 40 mg PO DAILY RF: 0 capsaicin 0.025 % Cream 1 applic TOPICAL BID RF: 0 levothyroxine 200 mcg Tablet 200 mcg PO DAILY RF: 0 glipizide 5 mg Tablet 5 mg PO BID RF: 0 metoprolol tartrate 25 mg Tablet 75 mg PO DAILY RF: 0 ondansetron HCl [Zofran] 4 mg tablet 4 mg PO Q8H PRNQty: 7 RF: 0 dicyclomine 20 mg tablet 20 mg PO QID Qty: 10 RF: 0 Changed omeprazole 40 MG capsule,delayed release(DR/EC) 40 mg PO BID Qty: 60 RF: 0 Discontinued lisinopril-hydrochlorothiazide 20-25 mg Tablet 2 tab PO DAILY RF: 0 Discharge Instructions Instructions: Amlodipine (By mouth), Gastritis (DC), Hyponatremia (DC) Additional Instructions: Return to the hospital with any fever, bleeding, chest pain, shortness of breath. Your blood pressure medications have changed - make sure you do not start taking lisinopril/hctz again. Care Plan Goals: Home with home health. Referrals: Brianne Montano [Primary Care Provider] - Activity:: Activity as Tolerated Equipment/Supplies:: Front wheeled Walker Diet:: Carb Counting Discharge Orders Discharge Orders: Discharge Order (Routine); Ordered 06/14/19 Ordered By: Joi Parson DS: Summary Status at Discharge Functional status at discharge: uses cane/walker Overall status at discharge: patient is back to baseline Mental Status: mental status grossly normal Speech and Movement: speech and movement normal Mood: congruent mood Affect: normal affect Exam Narrative Exam Narrative: General: Pleasant obese male, A&OX3, very quick to answer questions and answers appropriately HEENT: EOMI, MMM Cardiovascular: RRR, no m/r/g Lungs: CTAB Gastrointestinal: soft, nontender, nondistended Extremities: TEDs on Psych Mental Status: mental status grossly normal Speech and Movement: speech and movement normal Mood: congruent mood Affect: normal affect DS: Data Vitals/I&O Vitals and I&O: Vital Signs Temperature 36.8 C 06/14/19 07:48 Temperature Source Temporal Artery Scan 06/14/19 13:24 Pulse 66 06/14/19 13:20 Pulse Rhythm Regular 06/14/19 07:45 Pulse 73 06/14/19 13:20 Respiratory Rate 16 06/14/19 13:20 Respiratory Effort 06/14/19 07:45 Respiratory Depth Normal 06/14/19 07:45 Respiratory Pattern Normal 06/14/19 07:45 Blood Pressure 139/69 06/14/19 13:20 Blood Pressure Mean 84 06/14/19 13:20 Blood Pressure Position Sitting 06/13/19 07:55 Pulse Oximetry 97 06/14/19 13:20 Oxygen Delivery Method Room Air 06/14/19 13:24 Oxygen Flow Rate 0 06/14/19 13:24 Pain Level 9 06/14/19 14:45 Intake & Output 06/13/19 06/14/19 06/14/19 23:59 11:59 23:59 Intake Total 3315.417 / 4455.417 Output Total 3000 / 5000 2400 / 3400 1000 / 3400 Balance 315.417 / -544.583 -2400 / -3400 -1000 / -3400 Weight 128.4 kg Intake: IV 1585.417 / 1685.417 Oral 1730 / 2770 Output: Urine 3000 / 5000 2400 / 3400 1000 / 3400 Other: Urine Color Yellow Pale Light Allison Yellow Urine Appearance Clear Clear Urine Odor None Comment Not emptied at this time Penis head inflamed; crusty Stool Occult Blood Negative Stool Size Large Stool Characteristics Soft Formed Data Completed and Pending Completed studies during hospitalization [Text1]: GES 06/14/19: 1. No evidence of delayed gastric emptying. Echo 06/13/19: Left Ventricle : The left ventricle is normal size. The overall left ventricular systolic function appears normal. There is normal left ventricular wall thickness. There is normal LV segmental wall motion. The left ventricular diastolic function is normal. LVEF is 55-60%. Right Ventricle : Right ventricle is not well visualized. Right ventricular systolic function could not be assessed. The RVSP is 21.3 mmHg. Atria : The right atrium size is normal. Left atrium is normal in size. Valves: There are no hemodynamically significant valvular lesions. Great Vessels : IVC is normal in size and collapses >50% with inspiration. There is no prior echocardiogram available for comparison. CXR 06/13/2019: No acute pulmonary findings. Labs on day of discharge: Labs from last 24 hours 06/14/19 06/14/19 06/14/19 14:05 06:10 06:10 WBC 12.56 H RBC 3.65 L Hgb 11.5 L Hct 32.6 L MCV 89.3 MCH 31.5 MCHC 35.3 RDW 13.1 Plt Count 355 MPV 9.6 Immature Gran % 0.5 Neutrophils % 73.7 Lymphocytes % 13.6 Monocytes % 11.9 Eosinophils % 0.2 Basophils % 0.1 Absolute Neutrophils 9.26 H Absolute Lymphocytes 1.71 Absolute Monocytes 1.49 H Absolute Eosinophils 0.03 Absolute Basophils 0.01 Sodium 128 L 127 L Potassium 3.8 3.6 Chloride 93 L 93 L Carbon Dioxide 29.7 29.3 Anion Gap 5.3 4.7 BUN 10 9 Creatinine 1.04 1.06 Estimated GFR/1.73 m2 >= 60.00 >= 60.00 Glucose 105 127 H Calcium 8.8 8.9 Magnesium 1.8 06/14/19 06/13/19 00:00 18:07 WBC RBC Hgb Hct MCV MCH MCHC RDW Plt Count MPV Immature Gran % Neutrophils % Lymphocytes % Monocytes % Eosinophils % Basophils % Absolute Neutrophils Absolute Lymphocytes Absolute Monocytes Absolute Eosinophils Absolute Basophils Sodium Cancelled 123 L* Potassium Cancelled 3.6 Chloride Cancelled 91 L Carbon Dioxide Cancelled 26.1 Anion Gap Cancelled 5.9 BUN Cancelled 10 Creatinine Cancelled 1.20 Estimated GFR/1.73 m2 Cancelled 59.68 Glucose Cancelled 201 H D Calcium Cancelled 8.5 Magnesium PFSH Medical History (Updated 06/14/19 @ 16:45 by Joi Parson MD) Chronic hyponatremia (Acute) Depression (Chronic) GERD (gastroesophageal reflux disease) (Chronic) Hearing loss (Acute) Hyperlipidemia (Inactive) Hypertension (Inactive) Hypothyroidism (Chronic) Non-insulin dependent diabetes mellitus (Acute) Obesity (Chronic) Osteoarthritis (Chronic) Surgical History (Updated 06/12/19 @ 16:32 by Joi Parson MD) No pertinent past surgical history (Acute) Family History (Updated 06/12/19 @ 16:32 by Joi Parson MD) Mother Diabetes Cancer breast cancer Social History (Updated 06/12/19 @ 16:33 by Joi Parson MD) Smoking/Tobacco Use Status: Former Tobacco Use Quit Date: 02/15/14 Pack-years: 60 Tobacco: How many years used: 30 Alcohol Intake: former Drug use: Never Substance use type: does not use Do you feel safe at home: Yes Do you feel safe in your relationship?: Yes
--- NOTE | 2019-06-14 16:46 | PDOC.HHF2F ---
Home Health Certification Home Health Certification: 1. Encounter Date and Reason I certify that WALTER ZAPIEN was seen by Joi Parson on 06/14/19 and that I had a [id number] encounter with this patient that meets the physician face to face encounter requirements. 2. Clinical Findings Supporting Skilled Need and Homebound Status I certify that home health services are medically necessary, include either intermittent prison and/or physical/speech therapy, and that this patient is homebound in that absences from the home require considerable and taxing effort and are infrequent or of short duration, or are attributable to the need to receive medical care. [X] (a) Attached documentation from encounter provides clinical findings supporting skilled need and homebound status (including what assistance patient requires to leave the home). The encounter with the patient was in whole, or in part, for the following medical condition, which is the primary reason for home health care: ACUTE HYPONATREMIA, ABDOMINAL PAIN Penitentiary: Hyponatremia, hypertension - review medications/teaching Homebound: unable to leave home without assistance 3. Certification and Authentication I certify that I composed the above information based on my clinical judgement relating to this patient's medical condition and, if applicable, clinical findings communicated to me by the NPP or inpatient physician who performed the Home Health Referral. All further orders will be obtained through __Brianne Montano (Community Based Physician - PCP)
--- NOTE | 2019-06-14 17:02 | PDOC.CMDIS ---
LACE Index Scoring Tool - Questions: Length of Stay (in days): 2 Acuity (Admit via E.D.?): Yes Comorbidities: Diabetes w/o Complication E.D. Visits: 3 - Answers: Total Score: 9 Risk of Readmission: Low Risk Care Management Discharge Reason for Hospitalization: Acute hyponatremia, abdominal pain Discharge Plan: Naveed will return home when ready per MD, he will have new orders for [facility] and [facility] He will transport via private taxi. Patient/Family Education Needs: Review discharge instructions, discuss Ask Me Three. Services Needed at Discharge: Home Health Care Services (RN)
--- NOTE | 2019-06-15 16:41 | INDS_ITS ---
Date of service: 06/15/19 PT Notes Visit Reasons: ACUTE HYPONATREMIA, ABDOMINAL PAIN Physical Therapy Inpatient Discharge Summary Date: June 14, 2019 Dates of service: 06/14/2019 only This is a clinical summary of care provided on the duration of dates listed above. No charge was made in the completion of this documentation. Referring Doctor: Joi Parson PT Orders: PT CONSULT: Limited Ability Precautions: Falls. Standard. Patient Profile/Admitting Diagnosis: Naveed is a 73 year old male with PMHx of NIDDM2, HTN, hyperlipidemia, chronic hyponatremia, hypothyroidism, GERD, who was seen at [facility] ED on 06/10/2019 with epigastric-midabdominal pain and discharged home after having negative imaging, and returned with recurrent abdominal pain, noting increase after he eats. PMHX: Medical History(Updated 06/12/19 @ 16:39 by Joi Parson MD) Chronic hyponatremia (Acute) Depression (Chronic) GERD (gastroesophageal reflux disease) (Chronic) Hearing loss (Acute) Hyperlipidemia (Inactive) Hypertension (Inactive) Hypothyroidism (Chronic) Non-insulin dependent diabetes mellitus (Acute) Obesity (Chronic) Osteoarthritis (Chronic) Social History/Home Situation: Naveed notes that he lives alone in a second story apartment in [facility]. He reports that there is a railing to assist in stair climbing. He reports I at baseline without assistive device other than bilateral knee braces due to OA. He does not drive and utilizes taxi service for all his MD appts and grocery shopping. He is independent in meal prep however tends to eat a lot of heat up meals in the microwave. Equipment Owned/DME: Bilateral knee braces Subjective: NT Objective: General Observation: NT Mental Status: NT Pain: NT ROM: Right Upper Extremity: Shoulder flexion 140 degrees, abduction 145 degrees, ER 45 degrees, demonstrates WNL elbow, forearm, and wrist ROM Left Upper Extremity: Shoulder flexion 150 degrees, abduction 150 degrees, ER 45 degrees, demonstrates WNL elbow, forearm, and wrist ROM Right Lower Extremity: Hip flexion 95 degrees, knee flexion 100 degrees, knee extension lacking 10 degrees, WFL DF/PF Left Lower Extremity: Hip flexion 95 degrees, knee flexion 100 degrees, knee extension lacking 10 degrees, WFL DF/PF Strength: Right Upper Extremity: Demonstrates 5/5 right UE strength Left Upper Extremity: Demonstrates 5/5 left UE strength Right Lower Extremity: Demonstrates 4/5 hip flexion, 5/5 knee extension, 4/5 knee flexion, 5/5 DF/PF Left Lower Extremity: Demonstrates 4/5 hip flexion, 5/5 knee extension, 4/5 knee flexion, 5/5 DF/PF Bed Mobility/Transfers: Sit-stand: Supervision Stand-sit: supervision bed-chair: supervision Gait: Patient ambulated with use of FWW 25ftx2 SBA with FWB. Patient did not utilize his knee braces during ambulation. However notes increased irritation post primarily in the left knee. Patient independently donned his braces post ambulation. Balance: Static Sitting: Normal Dynamic Sitting: Normal Static Standing: Good Dynamic Standing: Fair Assessment: Patient was discharged to home with home health PT on 06/14/2019. Patient is a 73 year old male referred to physical therapy services with the diagnosis of acute hyponatremia and abdominal pain. Patient presents with clinical signs and symptoms consistent with diagnosis, Patient presents with functional mobility decline, dependent ADLs, need for an assistive device for gait, decreased activity tolerance, generalized weakness. Patient presents with clinical signs and symptoms consistent with current/admitting diagnoses that have resulted to mobility limitations, gait instability, generalized weakness, and impairment of motor control as demonstrated by the following impairment level findings: 1. Decreased strength to B LE major muscle groups 2. Impaired standing balance 3. Impaired activity tolerance 4. Chronic limitation of joint range of motion in bilateral knees Impairments are contributing to the following functional limitations: 1. Increased dependence with transfers 2. Inability to safely ambulate without assistive device and physical assistance 3. Increase completion time for mobility ADL performance 4. Inability to negotiate steps alone safely Goals: Goals X1 week 1. Supine-Sit Independent NOT MET 2. Sit-Supine Independent NOT MET 3. Sit-Stand Independent NOT MET 4. Stand-Sit Independent NOT MET 5. Bed-Chair Independent with use of least restrictive assistive device NOT MET 6. Chair-Bed Independent with use of least restrictive assistive device NOT MET 7. Gait Independnet with use of least restrictive assistive device 200 ft or greater NOT MET 8. Stairs ascend and descend a flight of stairs with use of railing NOT MET continue 9. Independent with home exercise program NOT MET 10. Improved dynamic standing balance good NOT MET DISCHARGE RECOMMENDATIONS: Patient may need FWW or walking sticks to promote improved independence and safety with gait. Patient to return home once medically cleared. TREATMENT CODE/TIME: NC. Thank you very much for this referral. Valencia Keen PT, DPT, CLT [facility] Inpatient PT at [facility]
== END 2019-06-14 18:00 | disposition home health service (06) | DRG 640 ==
LOC: ER 14:07 → ICU 14:41
PROVIDERS: Admitting Provider Internal Medicine; Emergency Provider Student in an Organized Health Care Education/Training Program; PCP Nurse Practitioner Adult Health; Visit Provider Internal Medicine
DX: E87.1 Hypo-osmolality and hyponatremia (principal); G92 Toxic encephalopathy; Z68.41 Body mass index [BMI] 40.0-44.9, adult; R10.9 Unspecified abdominal pain; D72.829 Elevated white blood cell count, unspecified; E87.6 Hypokalemia; E83.42 Hypomagnesemia; E66.01 Morbid (severe) obesity due to excess calories; I10 Essential (primary) hypertension; Z03.818 Encounter for observation for suspected exposure to other biological agents ruled out; E11.9 Type 2 diabetes mellitus without complications; Z71.3 Dietary counseling and surveillance; E78.5 Hyperlipidemia, unspecified; E03.9 Hypothyroidism, unspecified; K21.9 Gastro-esophageal reflux disease without esophagitis
CPT/HCPCS: 36415; 78265; 80048; 80053; 83690; 93005; 96361; 97162; 99233; 99239; 99285; 99291; U0003; 71045; 81003; 81015; 82565; 82607; 82728; 82746; 83540; 83550; 83605; 83735; 84133; 84300; 84443; 85025; 87086; 93010; 93306; J3475; J3480